=== PATIENT | male | born 1960 | race American Indian/Alaskan Native ===

== ENCOUNTER 2016-06-04 17:05 | Emergency (ER) | payer OTHER ==
[2016-06-04] MEDS ORDERED: PROTONIX IV ONE (19:21)
[2016-06-04] MEDS ORDERED: NACL 0.9% 1000 ML 1,000 ML IV ONE (19:21)
[2016-06-04] MEDS ORDERED: TORADOL IV ONE (19:21)
[2016-06-04] MEDS ORDERED: REGLAN IV ONE (19:21)
[2016-06-04] MEDS ORDERED: ZOFRAN IV ONE (19:21)
[2016-06-04] MEDS ORDERED: DILAUDID IV ONE (19:21)
[2016-06-04 20:22] LABS: Basophils % (Auto) 0.6 % (0.0-1.8); Hemoglobin 11.7 gm/dl (11.8-15.2); Mean Corpuscular HGB Conc 34 % (32-34); Mean Corpuscular Hemoglobin 28 pg (28-32); Mean Corpuscular Volume 83 fl (84-94); Platelet Count 346 K/mm3 (140-440); Red Blood Count 4.24 M/mm3 (3.65-5.03); Red Cell Distribution Width 15.2 % (13.2-15.2); White Blood Count 10.1 K/mm3 (4.5-11.0)
[2016-06-04] MEDS ORDERED: NORMODYNE IV ONE (20:26)
--- NOTE | 2016-06-04 20:26 | Emergency Department Report ---
ED Abdominal Pain HPI - General Chief Complaint: Abdominal Pain Stated Complaint: SEVERE ABD PAIN/DIABETIC/LOW SUGAR Time Seen by Provider: 06/04/16 19:10 Source: patient Mode of arrival: Ambulatory Limitations: No Limitations - History of Present Illness MD Complaint: abdominal pain Onset/Timin -: Gradual, days(s) Location: diffuse Radiation: none Migration to: no migration Severity: moderate Quality: cramping, aching Consistency: intermittent Improves With: nothing Worsens With: nothing Associated Symptoms: nausea, vomiting. denies: diarrhea, fever, chills, constipation, dysuria, hematemesis, melena, hematuria, anorexia - Related Data Home Medications Medication Instructions Recorded Confirmed Last Taken Lisinopril [Zestril TAB] 40 mg PO QDAY 06/04/16 06/04/16 06/04/16 NIFEdipine [Nifedipine ER] 60 mg PO DAILY 06/04/16 06/04/16 06/04/16 Allergies Allergy/AdvReac Type Severity Reaction Status Date / Time No Known Allergies Allergy Unverified 06/04/16 18:43 ED Review of Systems ROS: Stated complaint: SEVERE ABD PAIN/DIABETIC/LOW SUGAR Other details as noted in HPI Comment: All other systems reviewed and negative Gastrointestinal: abdominal pain ED Past Medical Hx - Medications Home Medications: Home Medications Medication Instructions Recorded Confirmed Last Taken Type Lisinopril [Zestril TAB] 40 mg PO QDAY 06/04/16 06/04/16 06/04/16 History NIFEdipine [Nifedipine ER] 60 mg PO DAILY 06/04/16 06/04/16 06/04/16 History ED Physical Exam - General Limitations: No Limitations General appearance: alert, in no apparent distress - Head Head exam: Present: atraumatic, normocephalic - Eye Eye exam: Present: normal appearance - ENT ENT exam: Present: mucous membranes moist - Neck Neck exam: Present: normal inspection - Respiratory Respiratory exam: Present: normal lung sounds bilaterally. Absent: respiratory distress - Cardiovascular Cardiovascular Exam: Present: regular rate, normal rhythm. Absent: systolic murmur, diastolic murmur, rubs, gallop - GI/Abdominal GI/Abdominal exam: Present: soft, tenderness (diffuse tenderness), normal bowel sounds. Absent: distended, guarding, rebound, rigid - Rectal Rectal exam: Present: deferred - Extremities Exam Extremities exam: Present: normal inspection - Back Exam Back exam: Present: normal inspection - Neurological Exam Neurological exam: Present: alert, oriented X3 - Psychiatric Psychiatric exam: Present: normal affect, normal mood - Skin Skin exam: Present: warm, dry, intact, normal color. Absent: rash ED Course Vital Signs 06/04/16 06/04/16 06/04/16 18:40 20:40 20:41 Temperature 98.6 F Pulse Rate 94 H Respiratory 18 20 20 Rate Blood Pressure 220/130 O2 Sat by Pulse 100 Oximetry 06/04/16 06/04/16 21:06 21:28 Temperature Pulse Rate 96 H Respiratory 20 Rate Blood Pressure 213/133 O2 Sat by Pulse 98 Oximetry ED Medical Decision Making - Lab Data Result diagrams: 06/04/16 20:07 06/04/16 20:07 - Medical Decision Making Patient doing well, labs negative and kub with non specific gas pattern , reassess on exam shows no tenderness and he is able to tolerate food here. Will dc and follow up. Critical care attestation.: If time is entered above; I have spent that time in minutes in the direct care of this critically ill patient, excluding procedure time. ED Disposition Clinical Impression: Abdominal pain Disposition: DISCHARGED TO HOME OR SELFCARE Is pt being admited?: No Does the pt Need Aspirin: No Condition: Good Instructions: Abdominal Pain (ED) Referrals: PRIMARY CARE, [Primary Care Provider] - 3-5 Days Time of Disposition: 22:21
[2016-06-04 21:09] LABS: Albumin 2.7 g/dL (3.9-5); Albumin/Globulin Ratio 0.6 %; BUN/Creatinine Ratio 8.21; Bilirubin,Total 0.2 mg/dL (0.1-1.2); Calcium 7.6 mg/dL (8.4-10.2); Chloride 103.4 mmol/L (98-107); Potassium 3.6 mmol/L (3.6-5.0); Total Protein 7.3 g/dL (6.3-8.2)
[2016-06-04 21:35] LABS: Bacteria,Urine 1+ /HPF (Negative); Bilirubin,Urine NEG (Negative); Blood,Urine NEG (Negative); Ketones,Urine TR mg/dL (Negative); Leukocyte Esterase,Urine NEG (Negative); Mucus,Urine FEW /HPF; Nitrite,Urine NEG (Negative); Protein,Urine >500 mg/dL (Negative); Urobilinogen,Urine < 2.0 mg/dL (<2.0)
[2016-06-04 23:02] VITALS: BP 176/98
--- NOTE | 2016-06-05 09:43 | XRay Report ---
ABDOMEN TWO VIEWS: 06/04/16 19:21:00 CLINICAL: Abdominal pain, vomiting and diarrhea. History of a hernia repair in 2016. COMPARISON:None. FINDINGS: Supine upright views demonstrate a normal bowel gas pattern. Stool in the rectum. No distended bowel and no air-fluid levels. No pneumoperitoneum. No mass or suspicious calcifications. Surgical clips in the right upper quadrant. Degenerative change in the spine and hips. IMPRESSION: Negative abdomen. Status post cholecystectomy.
== END 2016-06-04 23:11 | disposition home or self-care (01) ==
LOC: ED 17:05
DX: R10.9 Unspecified abdominal pain (principal)
CPT/HCPCS: 36415; 74020; 80053; 81001; 83690; 85025; 96361; 96374; 96375; 99284; C9113; J1170; J1885; J2405; J2765; J7030

== ENCOUNTER 2018-06-07 07:45 | Day surgery (SDC) | payer BC, OTHER ==
--- NOTE | 2018-06-07 09:07 | Short Stay Summary ---
Short Stay Documentation Date of service: 06/07/18 Narrative H&P: 58 year old male with ESRD and PVD with left lower extremity nonhealing ulceration on HBOT and right AVF malfunction with poor clearance. 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) - Allergies and Medications Current Medications: Allergies No Known Allergies Allergy (Unverified 06/04/16 18:43) Home Medications Medication Instructions Recorded Confirmed Last Taken Type Carvedilol [Coreg] 3.125 mg PO BID 06/07/18 06/07/18 06/06/18 History 3.125mg Ergocalciferol [Vitamin D2] 1 cap PO 1XW 06/07/18 06/07/18 06/05/18 History 1 Gabapentin [Neurontin] 100 mg PO TID 06/07/18 06/07/18 06/06/18 History 100mg Insulin Aspart [NovoLOG Flexpen] 5 units SC TID 06/07/18 06/07/18 06/06/18 History 5 units - Physical exam General appearance: no acute distress Lungs: Normal air movement Heart: Regular rate Gastrointestinal: normal Extremities: normal temperature, normal color, abnormal (right brachiobasilic AVF with good thrill, poor clearance per clinic ; left foot ulceration) - Brief post op/procedure progress note Date of procedure: 06/07/18 Pre-op diagnosis: AVF malfunction Post-op diagnosis: same Procedure: Fistulogram with angioplasty Anesthesia: local Findings: fistulogram with angioplasty Surgeon: HUNTER GAVIN Estimated blood loss: minimal Condition: stable - Hospital course Hospital course: ready for discharge, done with local - Disposition Condition at discharge: Good Disposition: DC-01 TO HOME OR SELFCARE - Discharge Diagnoses (1) Malfunction of arteriovenous dialysis fistula Status: Acute (2) ESRD (end stage renal disease) Status: Acute Short Stay Discharge Plan Activity: advance as tolerated Weight Bearing Status: Weight Bear as Tolerated Diet: renal Wound: keep clean and dry Additional Instructions: Followup this tuesday. Follow up with: ABHIJEET KIM MD [Primary Care Provider] - 7 Days Forms: AVG Arteriogram D/CInstruction
[2018-06-07] MEDS ORDERED: HEPARIN/NS 5000 UNIT/500ML(CATH LAB) 1,000 ML IR ONE (11:02)
[2018-06-07] MEDS: XYLOCAINE 2% INFILTRATI ONE ×2 (11:18→11:32)
[2018-06-07 12:45] VITALS: BP 161/89
--- NOTE | 2018-06-07 13:46 | Operative Report ---
Operative Report Operative Report: EXAM: 1. Ultrasound guided access of the basilic vein towards the anastomosis 2. First order selection of the brachial artery with angiography of the right upper extremity 3. Fistulogram 4. Angioplasty of the arterial anastomosis with a 6 mm x 40 mm angioplasty balloon 5. Angioplasty of the basilic vein at its peripheral and midportion with an 8 mm x 60 mm angioplasty balloon 6. Ultrasound-guided access of the basilic vein towards the venous outflow 7. Angioplasty of the peripheral subclavian vein/central axillary vein with a 12 mm x 60 mm angioplasty balloon DATE: 06/07/18 PERFUME COMPOUNDER: HUNTER GAVIN MD INDICATION: AV fistula malfunction with poor clearances MEDICATIONS: Please see nursing report for full details. DEVICES: 6 mm x 40 mm angioplasty balloon 8 mm x 60 mm angioplasty balloon 12 mm x 60 mm angioplasty balloon PROCEDURE: The risks, benefits, and alternatives of the procedure were discussed and written informed consent was obtained. The patient was transported in stable condition to the angiography suite. The patient's right arm AV brachial basilic AV fistula was assessed by ultrasound and was patent. The patient was prepped and draped in a sterile fashion. Under ultrasound guidance, the right arm AV basilic vein was accessed with a 21- gauge micropuncture needle. The area was anesthetized prior to access. 0.018 inch wire was advanced through the micropuncture needle into the fistula and then the needle was exchanged for a 5 Cypriot transitional dilator. The inner dilator and wire were removed and a 0.035 inch wire was advanced through the anastomosis and into the brachial artery in a retrograde manner. The transitional dilator was exchanged for a 7 Cypriot short sheath. Angled catheter was advanced over the wire and used a selective brachial artery and a retrograde fashion digital subtraction angiography was performed demonstrating patency of the brachial artery. There is patency of the brachial artery proximal and distal to the anastomosis with patency of the proximal ulnar, interosseous, and radial artery but these were small in size. The anas tomosis was 70% narrowed and there was intermittent aneurysmal degeneration and 50-70% narrowing in the peripheral limit portions of the basilic vein. The central portion of the basilic vein was patent. The axillary vein was patent. At the peripheral portion of the subclavian vein/central portion of the axillary vein, there was a 90% narrowing. The rest of the central veins were patent. 6 mm angioplasty balloon is used to perform angioplasty at the anastomosis. Subsequently, 8 mm x 60 mm angioplasty balloon was used to perform angioplasty of the rest of the basilic vein. Digital subtraction angiography was performed demonstrating 20% residual narrowing of the anastomosis with 10% residual narrowing of the rest of the basilic vein with aneurysmal degeneration still noted. Afterwards, under ultrasound guidance, the right arm AV basilic vein was accessed with a 21-gauge micropuncture needle. The area was anesthetized prior to access. 0.018 inch wire was advanced through the micropuncture needle into the fistula and then the needle was exchanged for a 5 Cypriot transitional dilator. The inner dilator and wire were removed and a 0.035 inch wire was advanced through the venous outflow. The transitional dilator was exchanged for a 7 Cypriot short sheath. 12 mm angioplasty balloon was then used to perform angioplasty at the central portion of the axillary vein/peripheral portion of the subclavian vein. Digital subtraction angiography was performed demonstrating 10% residual narrowing. At this point, all wires, catheters, and sheaths were removed. Each site was closed with 3-0 Vicryl suture. Hemostasis was achieved with slight manual compression. The patient was transported from the angiography suite to the recovery area in stable condition. IMPRESSION: 1. Angioplasty of the peripheral dialysis access as described above. 2. Angioplasty of the peripheral portion of the subclavian vein as described above.
== END 2018-06-07 13:00 | disposition home or self-care (01) ==
LOC: CATHLABREC 07:45
PROVIDERS: ATTEND Radiology Diagnostic Radiology
DX: T82.898A Other specified complication of vascular prosthetic devices, implants and grafts, initial encounter (principal); T82.590A Other mechanical complication of surgically created arteriovenous fistula, initial encounter; I12.0 Hypertensive chronic kidney disease with stage 5 chronic kidney disease or end stage renal disease; N18.6 End stage renal disease; I73.9 Peripheral vascular disease, unspecified; Z99.2 Dependence on renal dialysis; Z98.890 Other specified postprocedural states; Z79.899 Other long term (current) drug therapy; Z79.4 Long term (current) use of insulin; Y83.8 Other surgical procedures as the cause of abnormal reaction of the patient, or of later complication, without mention of misadventure at the time of the procedure; Y92.89 Other specified places as the place of occurrence of the external cause
CPT/HCPCS: 36415; 36902; 76937; 84132; C1725; C1751; C1769; C1894; J1644; Q9967

== ENCOUNTER 2018-06-15 06:20 | Day surgery (SDC) | payer BC ==
[2018-06-15] MEDS ORDERED: NACL 0.9% 500 ML 500 ML IV SCH (07:00)
[2018-06-15 07:12] LABS: Basophils % (Auto) 0.5 % (0.0-1.8); Eosinophils # (Auto) 0.1 K/mm3 (0.0-0.4); Eosinophils % (Auto) 1.8 % (0.0-4.3); Hematocrit 41.7 % (35.5-45.6); Hemoglobin 13.6 gm/dl (11.8-15.2); Lymphocytes # (Auto) 2.7 K/mm3 (1.2-5.4); Lymphocytes % (Auto) 36.1 % (13.4-35.0); Mean Corpuscular HGB Conc 33 % (32-34); Mean Corpuscular Volume 88 fl (84-94); Monocytes # (Auto) 0.8 K/mm3 (0.0-0.8); Monocytes % (Auto) 10.9 % (0.0-7.3); Platelet Count 202 K/mm3 (140-440); Red Blood Count 4.76 M/mm3 (3.65-5.03); Red Cell Distribution Width 17.1 % (13.2-15.2)
[2018-06-15 07:19] LABS: INR 0.97 (0.87-1.13)
[2018-06-15 07:20] LABS: Partial Thromboplastin Time 31.2 Sec. (24.2-36.6)
[2018-06-15 07:27] LABS: Calcium 8.5 mg/dL (8.4-10.2)
[2018-06-15] MEDS ORDERED: HEPARIN 10,000 UNITS/10 ML ONE (08:17)
[2018-06-15] MEDS ORDERED: XYLOCAINE 2% INFILTRATI ONE (08:17)
[2018-06-15] MEDS ORDERED: HEPARIN/NS 5000 UNIT/500ML(CATH LAB) 1,000 ML IR ONE (08:17)
[2018-06-15] MEDS ORDERED: ANCEF/STERILE WATER 2 GM/20 ML 2 GM/20 ML SYRINGE IV ONE (08:18)
[2018-06-15] MEDS: SUBLIMAZE ONE ×2 (08:43→08:46)
[2018-06-15] MEDS: VERSED ONE ×2 (08:43→08:46)
[2018-06-15] MEDS ORDERED: VERSED ONE (09:37)
[2018-06-15] MEDS ORDERED: SUBLIMAZE ONE (09:37)
[2018-06-15] MEDS ORDERED: NITROGLYCERIN SYRINGE 3 ML ONE (09:41)
[2018-06-15] MEDS ORDERED: PLAVIX ONE (10:06)
[2018-06-15] MEDS ORDERED: BABY ASPIRIN ONE (10:06)
[2018-06-15] MEDS ORDERED: ALUM-MAG HYDROX-SIMETH 200-200-20MG/5ML ONE (10:11)
--- NOTE | 2018-06-15 10:12 | Short Stay Summary ---
Short Stay Documentation Date of service: 06/15/18 Narrative H&P: 58 year old male with ESRD and nonhealing left charcot joint with PVD with ulceration. - History Principal diagnosis: PVD with ulceration H&P: obtained from office Past Medical History: diabetes, dialysis, PVD Past Surgical History: Other (AV access creation, prior angioplasty by outside physician) Social history: no significant social history - Allergies and Medications Current Medications: Allergies No Known Allergies Allergy (Unverified 06/04/16 18:43) Home Medications Medication Instructions Recorded Confirmed Last Taken Type Carvedilol [Coreg] 3.125 mg PO BID 06/07/18 06/15/18 06/14/18 History Ergocalciferol [Vitamin D2] 1 cap PO 1XW 06/07/18 06/15/18 06/12/18 History Gabapentin [Neurontin] 100 mg PO TID 06/07/18 06/15/18 06/14/18 History Insulin Aspart [NovoLOG Flexpen] 5 units SC TIDAC 06/07/18 06/15/18 06/14/18 History Active Medications Sodium Chloride (Nacl 0.9% 500 Ml) 500 mls @ 50 mls/hr IV DIRECT FABI - Physical exam General appearance: no acute distress Lungs: Normal air movement Gastrointestinal: normal Extremities: normal temperature, normal color, abnormal (left foot ulcer) - Brief post op/procedure progress note Date of procedure: 06/15/18 Pre-op diagnosis: PVD with ulceration Post-op diagnosis: same Procedure: revascularization of the left lower extremity Anesthesia: local (w/ conscious sedation) Surgeon: HUNTER GAVIN Estimated blood loss: minimal Condition: stable - Hospital course Hospital course: Tolerated procedure well. No issues. Loaded with plavix and aspirin. - Disposition Condition at discharge: Stable Disposition: DC-01 TO HOME OR SELFCARE - Discharge Diagnoses (1) Atherosclerosis of left lower extremity with ulceration Status: Acute Short Stay Discharge Plan Activity: advance as tolerated Weight Bearing Status: Weight Bear as Tolerated Diet: renal Wound: keep clean and dry, other (remove pressure dressing 06/16/18 in AM) Follow up with: HUNTER GAVIN MD [Staff Physician] - 7 Days ABHIJEET KIM MD [Primary Care Provider] - 7 Days Forms: Post Arteriogram Instruct Prescriptions: Aspirin EC [Aspirin Enteric Coated TAB] 81 mg PO QDAY #30 tablet. Clopidogrel [Plavix] 75 mg PO QDAY #30 tablet
--- NOTE | 2018-06-15 10:26 | Operative Report ---
Operative Report Operative Report: EXAM: 1. Ultrasound-guided access of the right common femoral artery. 2. Angiography of the right lower extremity. 3. Selection of the abdominal aorta with angiography. 4. Selection of the left external iliac artery, common femoral artery, superficial femoral artery and popliteal artery, and anterior tibial artery with angiography of the left lower extremity 5. Fluoroscopic guided placement of a 3 mm spider embolic protection device in the left anterior tibial artery, distally. 6. Atherectomy of the left proximal and mid anterior tibial artery with a Hawkone S with angioplasty with a 3 mm biology and 50 mm angioplasty balloon and 3.5 mm x 100 mm angioplasty balloon. 7. Capture of embolic protection device 8. Closure of the right common femoral artery with a 6 Namibian Angio-Seal DATE: 06/15/18 CARPENTER HELPER MAINTENANCE: HUNTER GAVIN MD INDICATION: Critical limb ischemia of the left lower extremity MEDICATIONS: Please see nursing report for full details. DEVICES: Hawkone S 3 mm x 150 mm angioplasty balloon 3.5 mm x 100 mm angioplasty balloon 3 mm spider embolic protection device CONTRAST: Please see quality assurance qa lab analyst report for full details PROCEDURE: Risks, benefits, and alternatives were discussed with the patient; written informed consent was obtained. The right and left common femoral arteries were assessed with ultrasound were patent. Under direct ultrasound guidance, the right common femoral artery was accessed with a 21-gauge micro-puncture needle. 0.018 inch wire was passed into the aorta. Needle was exchanged for a transitional dilator. Wire was exchanged for 0.035 inch wire. Transitional dilator was exchanged for a 5 Namibian sheath. Digital subtraction angiography was performed demonstrating an appropriate puncture, above the bifurcation and below the inferior epigastric artery. The right external iliac artery, common femoral artery, profunda femoral artery and superficial femoral artery were patent. Digital subtraction angiography was performed demonstrating runoff of the right lower extremity with patency of the right popliteal artery and tibioperoneal trunk and patency of the posterior tibial artery and peroneal artery. Anterior tibial artery had multifocal high- grade narrowings. Distribution into the foot was good although the transit from the anterior tibial was quite sluggish. Catheter was used to select the abdominal aorta. Digital subtraction angiography was performed demonstrating mild narrowing of the renal arteries. The abdominal aorta was patent. The bilateral common iliac arteries were patent. The bilateral internal iliac arteries were patent. The bilateral external iliac arteries were patent. The left external iliac artery was selected. The left common femoral artery was selected. The left superficial femoral artery was selected. The left popliteal artery was selected. Left anterior tibial artery was selected. Digital subtraction angiography was performed demonstrating patency of the left superficial femoral artery and popliteal artery with patency of the tibial peroneal trunk and peroneal artery with occlusion of the posterior tibial artery and severe multifocal 90% and 99% narrowing of the left proximal and mid anterior tibial artery with sluggish flow. The distal runoff of the anterior tibial artery was patent. The distal peroneal artery had a large hypertrophic branch of posterior communicating artery which appeared to be continuous with the common plantar arteries. The distribution into the foot was good although the transit from the anterior tibial was sluggish. The patient was heparinized. Sheath was exchanged for 6 Namibian 90 cm Lucile destination positioned in the left popliteal artery. Left anterior tibial artery was selected and digital subtraction angiography was performed confirming position. V 18 wire was passed into the distal anterior tibial artery. 3 mm spider wire was then advanced over the wire and deployed in the left anterior tibial artery. Atherectomy was performed of the left anterior tibial artery with multiple passes with the [employer] S device. Afterwards, 3 mm x 150 mm angioplasty balloon was used to perform angioplasty of the left anterior tibial artery. Subsequently, 3.5 mm x 100 mm angioplasty balloon was used to perform angioplasty of the left proximal to mid anterior tibial artery. Digital subtraction angiography demonstrated less than 10% residual narrowing. There is now prompt flow through the anterior tibial artery. 600 micrograms of nitroglycerin injected. Spider wire was then removed and digital subtraction angiography demonstrated no change in the pedal runoff/distribution. All wires, catheters, and sheaths retracted the right external iliac artery. Sheath was exchanged for 6 [place]ibian Angio-Seal which was deployed achieving immediate hemostasis. Ultrasound was used to confirm positioning of the foot plate which was in appropriate position. Patient tolerated procedure well. No immediate postprocedure complication. FINDINGS: Please see procedure note above. IMPRESSION: 1. Successful left lower extremity anterior tibial artery atherectomy and angioplasty.
[2018-06-15 12:51] VITALS: BP 139/79
== END 2018-06-15 13:05 | disposition home or self-care (01) ==
LOC: CATHLABREC 06:20
PROVIDERS: ATTEND Radiology Diagnostic Radiology
DX: I70.213 Atherosclerosis of native arteries of extremities with intermittent claudication, bilateral legs (principal); I70.249 Atherosclerosis of native arteries of left leg with ulceration of unspecified site; I12.0 Hypertensive chronic kidney disease with stage 5 chronic kidney disease or end stage renal disease; N18.6 End stage renal disease; Z98.890 Other specified postprocedural states; Z99.2 Dependence on renal dialysis; Z79.899 Other long term (current) drug therapy; Z79.82 Long term (current) use of aspirin; Z79.4 Long term (current) use of insulin
CPT/HCPCS: 36415; 37229; 75625; 75716; 80048; 85025; 85610; 85730; 99156; 99157; C1714; C1725; C1760; C1769; C1887; J0690; J1644; J2250; J3010; J7040; Q9967

== ENCOUNTER 2018-08-17 12:58 | Emergency (ER) | payer BC ==
--- NOTE | 2018-08-17 13:21 | Emergency Department Report ---
Blank Doc - Documentation Documentation: 58 y o male was at dialysis today when he started experiencing abd cramping
[2018-08-17 13:52] LABS: Basophils % (Auto) 0.3 % (0.0-1.8); Eosinophils % (Auto) 0.5 % (0.0-4.3); Hematocrit 39.5 % (35.5-45.6); Hemoglobin 13.3 gm/dl (11.8-15.2); Lymphocytes # (Auto) 2.3 K/mm3 (1.2-5.4); Lymphocytes % (Auto) 28.6 % (13.4-35.0); Mean Corpuscular HGB Conc 34 % (32-34); Mean Corpuscular Volume 87 fl (84-94); Monocytes # (Auto) 0.9 K/mm3 (0.0-0.8); Monocytes % (Auto) 10.9 % (0.0-7.3); Platelet Count 360 K/mm3 (140-440); Red Blood Count 4.53 M/mm3 (3.65-5.03); Red Cell Distribution Width 18.6 % (13.2-15.2)
[2018-08-17 14:02] LABS: INR 1.12 (0.87-1.13)
[2018-08-17 14:14] LABS: Albumin 4.5 g/dL (3.9-5); Calcium 8.9 mg/dL (8.4-10.2)
--- NOTE | 2018-08-17 15:17 | Cat Scan Report ---
CT ABDOMEN PELVIS WITHOUT CONTRAST: HISTORY: abdominal pain. COMPARISON: none. TECHNIQUE: Helical CT in 1.25mm intervals without IV contrast. Sagittal and coronal reconstructions. FINDINGS: Lung bases: Normal. Liver: Normal. Biliary system: Normal. Pancreas: Normal. Spleen: Normal. Kidneys/ureters/bladder: Normal. Adrenal glands: Normal. Aorta: Normal. Intestines: No evidence for bowel obstruction or focal inflammation. A surgical suture line is noted in the left abdomen involving mid small bowel loops, correlate with history. There are a few scattered cecal diverticula but no evidence for diverticulitis. Appendix: Normal. Pelvic viscera: Normal. Ascites: None. Adenopathy: None. Musculoskeletal: Mild lumbar spondylosis is noted. There is laxity of the anterior abdominal wall in the umbilical region. There appears to be multiple small ventral wall defects in this area. Approximately 3 or 4 small defects are suspected. Some of the defects containing a short segment of small bowel and some contain fat. There is no evidence for bowel obstruction. IMPRESSION: No acute inflammatory process is identified. Multiple small ventral wall defects containing fat and short segments of small bowel are identified in the umbilical region. No evidence for inflammation in this area. Mild cecal diverticulosis.
[2018-08-17] MEDS ORDERED: MORPHINE IV ONE (16:41)
[2018-08-17] MEDS ORDERED: ZOFRAN IV ONE (16:41)
[2018-08-17] MEDS ORDERED: DILAUDID IV ONE (17:28)
[2018-08-17 18:53] VITALS: BP 166/90
--- NOTE | 2018-08-17 19:11 | Emergency Department Report ---
ED Abdominal Pain HPI - General Chief Complaint: Abdominal Pain Stated Complaint: ABD PAIN Time Seen by Provider: 08/17/18 13:17 Source: patient Mode of arrival: Ambulatory Limitations: No Limitations - History of Present Illness Initial Comments: Mr. Smith is a very pleasant 58-year-old gentleman with history of end-stage renal disease, he receives dialysis Tuesday. History of diabetes mellitus. He has had a history of gastroparesis for the past [address] Weaver GI specialist in [place]. He has left upper quadrant abdominal pain with nausea. Pain has been present for the past 1 1/2 day since yesterday. According to Mr. Smith and his , On previous ED visits pain has resolved with ketamine or Dilaudid. Morphine normally does not provide relief. Pain is typical for gastroparesis. He has cramping. Denies fever. Dr. Hays iron and [employer] work supervisor Dr. Abhijeet Kim PCP in [place] MD Complaint: abdominal pain -: Gradual, days(s) (1) Location: LUQ Radiation: none Severity: mild, severe Severity scale (0 -10): 0 Quality: cramping Consistency: intermittent Worsens With: eating Associated Symptoms: nausea, vomiting - Related Data Home Medications Medication Instructions Recorded Confirmed Last Taken Carvedilol [Coreg] 3.125 mg PO BID 06/07/18 06/15/18 06/14/18 Ergocalciferol [Vitamin D2] 1 cap PO 1XW 06/07/18 06/15/18 06/12/18 Gabapentin [Neurontin] 100 mg PO TID 06/07/18 06/15/18 06/14/18 Insulin Aspart [NovoLOG Flexpen] 5 units SC TIDAC 06/07/18 06/15/18 06/14/18 Previous Rx's Medication Instructions Recorded Last Taken Type Aspirin EC [Aspirin Enteric Coated 81 mg PO QDAY #30 tablet. 06/15/18 Unknown Rx TAB] Clopidogrel [Plavix] 75 mg PO QDAY #30 tablet 06/15/18 Unknown Rx Ondansetron [Zofran Odt] 4 mg PO Q8HR PRN #10 tab.rapdis 08/17/18 Unknown Rx Allergies Allergy/AdvReac Type Severity Reaction Status Date / Time No Known Allergies Allergy Unverified 06/04/16 18:43 ED Review of Systems ROS: Stated complaint: ABD PAIN Other details as noted in HPI Comment: All other systems reviewed and negative Constitutional: denies: fever, malaise Cardiovascular: denies: chest pain Gastrointestinal: abdominal pain, nausea, vomiting ED Past Medical Hx - Past Medical History Previous Medical History?: Yes Hx Hypertension: Yes Hx Diabetes: Yes Hx Renal Disease: Yes Hx HIV: No Additional medical history: gastroporesis - Surgical History Past Surgical History?: Yes Additional Surgical History: hernia repair - Social History Smoking Status: Never Smoker Substance Use Type: None - Medications Home Medications: Home Medications Medication Instructions Recorded Confirmed Last Taken Type Carvedilol [Coreg] 3.125 mg PO BID 06/07/18 06/15/18 06/14/18 History Ergocalciferol [Vitamin D2] 1 cap PO 1XW 06/07/18 06/15/18 06/12/18 History Gabapentin [Neurontin] 100 mg PO TID 06/07/18 06/15/18 06/14/18 History Insulin Aspart [NovoLOG Flexpen] 5 units SC TIDAC 06/07/18 06/15/18 06/14/18 History Aspirin EC [Aspirin Enteric Coated 81 mg PO QDAY #30 tablet.dr 06/15/18 Unknown Rx TAB] Clopidogrel [Plavix] 75 mg PO QDAY #30 tablet 06/15/18 Unknown Rx Ondansetron [Zofran Odt] 4 mg PO Q8HR PRN #10 tab.rapdis 08/17/18 Unknown Rx ED Physical Exam - General Limitations: No Limitations General appearance: alert, in no apparent distress - Head Head exam: Present: atraumatic, normocephalic - Eye Eye exam: Present: normal appearance - ENT ENT exam: Present: mucous membranes moist - Neck Neck exam: Present: normal inspection, full ROM - Respiratory Respiratory exam: Present: normal lung sounds bilaterally. Absent: respiratory distress, wheezes, rales, rhonchi - Cardiovascular Cardiovascular Exam: Present: regular rate, normal rhythm, normal heart sounds. Absent: systolic murmur, diastolic murmur, rubs, gallop - GI/Abdominal GI/Abdominal exam: Present: soft, normal bowel sounds. Absent: distended, tenderness, guarding, rebound - Rectal Rectal exam: Present: deferred - Extremities Exam Extremities exam: Present: normal inspection - Back Exam Back exam: Present: normal inspection - Neurological Exam Neurological exam: Present: alert, oriented X3 - Psychiatric Psychiatric exam: Present: normal affect, normal mood - Skin Skin exam: Present: warm, dry, intact, normal color. Absent: rash ED Course Vital Signs 08/17/18 08/17/18 08/17/18 13:17 16:24 16:31 Temperature 97.8 F 97.9 F Pulse Rate 109 H 103 H Respiratory 109 H 20 Rate Blood Pressure 143/86 176/96 Blood Pressure 176/96 [Left] O2 Sat by Pulse 99 100 99 Oximetry 08/17/18 08/17/18 08/17/18 17:10 17:30 18:00 Temperature Pulse Rate Respiratory 16 Rate Blood Pressure 178/101 178/100 Blood Pressure [Left] O2 Sat by Pulse 92 100 Oximetry 08/17/18 08/17/18 18:02 18:30 Temperature Pulse Rate 92 H Respiratory 18 22 Rate Blood Pressure 166/90 Blood Pressure [Left] O2 Sat by Pulse 97 Oximetry ED Medical Decision Making - Lab Data Result diagrams: 08/17/18 13:31 08/17/18 13:31 Laboratory Results - last 24 hr 08/17/18 08/17/18 08/17/18 13:31 13:31 13:31 WBC 8.0 RBC 4.53 Hgb 13.3 Hct 39.5 MCV 87 MCH 29 MCHC 34 RDW 18.6 H Plt Count 360 Lymph % (Auto) 28.6 Gaines % (Auto) 10.9 H Eos % (Auto) 0.5 Baso % (Auto) 0.3 Lymph # 2.3 Gaines # 0.9 H Eos # 0.0 Baso # 0.0 Seg Neutrophils % 59.7 Seg Neutrophils # 4.8 PT 14.1 INR 1.12 Sodium 137 Potassium 4.1 Chloride 92.5 L Carbon Dioxide 22 Anion Gap 27 BUN 38 H Creatinine 10.3 H Estimated GFR 6 BUN/Creatinine Ratio 4 Glucose 255 H Calcium 8.9 Total Bilirubin 0.60 AST 16 ALT 11 Alkaline Phosphatase 126 Total Protein 9.9 H Albumin 4.5 Albumin/Globulin Ratio 0.8 - Medical Decision Making Mr. Smith presents with recurrent abdominal pain nausea vomiting. Pain is typical for pain related to gastroparesis. No indication of peritonitis or acute infection. CBC potassium was normal limits. He received relief of pain with IV hydromorphone. I prescribed Zofran. I offered hospitalization admission. He politely declined hospitalization. He desired to be discharged home. Critical care attestation.: If time is entered above; I have spent that time in minutes in the direct care of this critically ill patient, excluding procedure time. ED Disposition Clinical Impression: Acute abdominal pain, Diabetes mellitus, Gastroparesis, ESRD (end stage renal disease) Disposition: - TO HOME OR SELFCARE Is pt being admited?: No Does the pt Need Aspirin: No Condition: Stable Instructions: Acute Nausea and Vomiting (ED), Acute Abdominal Pain (ED) Prescriptions: Ondansetron [Zofran Odt] 4 mg PO Q8HR PRN #10 tab.rapdis PRN Reason: Nausea Referrals: ABHIJEET KIM MD [Primary Care Provider] - 3-5 Days
== END 2018-08-17 19:43 | disposition home or self-care (01) ==
LOC: ED 12:58
DX: E11.43 Type 2 diabetes mellitus with diabetic autonomic (poly)neuropathy (principal); K31.84 Gastroparesis; E11.22 Type 2 diabetes mellitus with diabetic chronic kidney disease; I12.0 Hypertensive chronic kidney disease with stage 5 chronic kidney disease or end stage renal disease; N18.6 End stage renal disease; Z99.2 Dependence on renal dialysis; Z79.899 Other long term (current) drug therapy
CPT/HCPCS: 36415; 74176; 80053; 85025; 85610; 96374; 96375; 99284; J1170; J2270; J2405

== ENCOUNTER 2018-08-23 14:35 | Inpatient (IN) | payer BC ==
--- NOTE | 2018-08-23 14:57 | Event Note ---
ED Screening Note Date of service: 08/23/18 Time: 14:55 ED Screening Note: 58 y/o male comes in for abd pain. Hx/o DM, HTN, ESRD hx/ gastroparesis 11/30 pain. This initial assessment/diagnostic orders/clinical plan/treatment(s) is/are subject to change based on patients health status, clinical progression and re- assessment by fellow clinical providers in the ED. Further treatment and workup at subsequent clinical providers discretion. Patient/guardian urged not to elope from the ED as their condition may be serious if not clinically assessed and managed. Initial orders include:
[2018-08-23 15:26] LABS: Basophils # (Auto) 0.1 K/mm3 (0.0-0.1); Basophils % (Auto) 0.7 % (0.0-1.8); Eosinophils % (Auto) 0.3 % (0.0-4.3); Hematocrit 42.1 % (35.5-45.6); Hemoglobin 14.2 gm/dl (11.8-15.2); Lymphocytes % (Auto) 23.6 % (13.4-35.0); Mean Corpuscular HGB Conc 34 % (32-34); Mean Corpuscular Volume 89 fl (84-94); Monocytes # (Auto) 0.8 K/mm3 (0.0-0.8); Platelet Count 295 K/mm3 (140-440); Red Blood Count 4.75 M/mm3 (3.65-5.03)
[2018-08-23 15:34] LABS: Red Cell Distribution Width 21.8 % (13.2-15.2)
[2018-08-23 15:50] LABS: Albumin 4.5 g/dL (3.9-5); Calcium 9.5 mg/dL (8.4-10.2)
[2018-08-23] MEDS ORDERED: ATIVAN IV ONE (17:09)
[2018-08-23] MEDS ORDERED: ZOFRAN IV ONE ×2 (17:09→18:15)
--- NOTE | 2018-08-23 17:09 | Emergency Department Report ---
ED Abdominal Pain HPI - General Chief Complaint: Abdominal Pain Stated Complaint: ABD PAIN/NAUSEA Time Seen by Provider: 08/23/18 16:29 Source: patient Mode of arrival: Ambulatory Limitations: No Limitations - History of Present Illness Initial Comments: Mr. Smith is a very pleasant 58-year-old gentleman with history of end-stage renal disease on dialysis. He also has a history of diabetes mellitus and gastroparesis. He receives dialysis Tuesday. For the last 2-3 years he has had symptoms of abd pain, n/v with diabetic gastroparesis. Followed by Dr. Weaver GI specialist in [place]. He has diffuse abdominal pain. Has had nausea and vomiting. He tolerated his last meal was on Tuesday 2 days ago. On according to Mr. Smith, on previous ED visitshis pain has resolved with ketamine or Dilaudid. Morphine only does not provide any relief. Pain is typical for gastroparesis. He has crampy dull pain. Denies fever. On previous occasion he has been treated at [facility]. He has decided to come to our hospital because he no longer received ketamine or Dilaudid. He currently requests Dilaudid or ketamine in order to control his symptoms. Certified Dietary Manager Dr. Lis Kim PCP in [place] Complaint: abdominal pain -: Gradual, days(s) (2) Location: diffuse Severity: moderate Severity scale (0 -10): 10 Quality: cramping, aching, dull Consistency: constant Improves With: nothing Worsens With: eating Associated Symptoms: nausea, vomiting - Related Data Home Medications Medication Instructions Recorded Confirmed Last Taken Carvedilol [Coreg] 3.125 mg PO BID 06/07/18 06/15/18 06/14/18 Ergocalciferol [Vitamin D2] 1 cap PO 1XW 06/07/18 06/15/18 06/12/18 Gabapentin [Neurontin] 100 mg PO TID 06/07/18 06/15/18 06/14/18 Insulin Aspart [NovoLOG Flexpen] 5 units SC TIDAC 06/07/18 06/15/18 06/14/18 Previous Rx's Medication Instructions Recorded Last Taken Type Aspirin EC [Aspirin Enteric Coated 81 mg PO QDAY #30 tablet. 06/15/18 Unknown Rx TAB] Clopidogrel [Plavix] 75 mg PO QDAY #30 tablet 06/15/18 Unknown Rx Ondansetron [Zofran Odt] 4 mg PO Q8HR PRN #10 tab.rapdis 08/17/18 Unknown Rx Allergies Allergy/AdvReac Type Severity Reaction Status Date / Time No Known Allergies Allergy Verified 08/23/18 15:01 ED Review of Systems ROS: Stated complaint: ABD PAIN/NAUSEA Other details as noted in HPI Comment: All other systems reviewed and negative Constitutional: malaise. denies: fever Gastrointestinal: abdominal pain, nausea, vomiting. denies: diarrhea ED Past Medical Hx - Past Medical History Previous Medical History?: Yes Hx Hypertension: Yes Hx Diabetes: Yes Hx Renal Disease: Yes (ESRD, HD M-W-F) Hx HIV: No Additional medical history: gastroporesis - Surgical History Past Surgical History?: Yes Additional Surgical History: hernia repair. left foot, left ACL - Social History Smoking Status: Never Smoker Substance Use Type: None - Medications Home Medications: Home Medications Medication Instructions Recorded Confirmed Last Taken Type Carvedilol [Coreg] 3.125 mg PO BID 06/07/18 06/15/18 06/14/18 History Ergocalciferol [Vitamin D2] 1 cap PO 1XW 06/07/18 06/15/18 06/12/18 History Gabapentin [Neurontin] 100 mg PO TID 06/07/18 06/15/18 06/14/18 History Insulin Aspart [NovoLOG Flexpen] 5 units SC TIDAC 06/07/18 06/15/18 06/14/18 History Aspirin EC [Aspirin Enteric Coated 81 mg PO QDAY #30 tablet. 06/15/18 Unknown Rx TAB] Clopidogrel [Plavix] 75 mg PO QDAY #30 tablet 06/15/18 Unknown Rx Ondansetron [Zofran Odt] 4 mg PO Q8HR PRN #10 tab.rapdis 08/17/18 Unknown Rx ED Physical Exam - General Limitations: No Limitations General appearance: alert, in no apparent distress, other (holding half full emesis bag) - Head Head exam: Present: atraumatic, normocephalic - Eye Eye exam: Present: normal appearance - ENT ENT exam: Present: mucous membranes moist - Neck Neck exam: Present: normal inspection, full ROM - Respiratory Respiratory exam: Present: normal lung sounds bilaterally. Absent: respiratory distress, wheezes, rales, rhonchi - Cardiovascular Cardiovascular Exam: Present: normal rhythm, tachycardia, normal heart sounds. Absent: rubs, gallop - GI/Abdominal GI/Abdominal exam: Present: soft, normal bowel sounds. Absent: distended, tenderness, guarding, rebound - Rectal Rectal exam: Present: deferred - Extremities Exam Extremities exam: Present: normal inspection - Back Exam Back exam: Present: normal inspection - Neurological Exam Neurological exam: Present: alert, oriented X3 - Psychiatric Psychiatric exam: Present: normal affect, normal mood - Skin Skin exam: Present: warm, dry, intact, normal color. Absent: rash ED Course Vital Signs 08/23/18 14:54 Temperature 98.2 F Pulse Rate 115 H Respiratory 20 Rate Blood Pressure 109/74 [Right] O2 Sat by Pulse 97 Oximetry ED Medical Decision Making - Lab Data Result diagrams: 08/23/18 15:10 08/23/18 15:10 Laboratory Results - last 24 hr 08/23/18 08/23/18 08/23/18 15:05 15:10 15:10 WBC 8.3 RBC 4.75 Hgb 14.2 Hct 42.1 MCV 89 MCH 30 MCHC 34 RDW 21.8 H Plt Count 295 Lymph % (Auto) 23.6 Lamb % (Auto) 10.0 H Eos % (Auto) 0.3 Baso % (Auto) 0.7 Lymph # 2.0 Lamb # 0.8 Eos # 0.0 Baso # 0.1 Seg Neutrophils % 65.4 Seg Neutrophils # 5.4 Sodium 133 L Potassium 3.9 Chloride 91.6 L Carbon Dioxide 20 L Anion Gap 25 BUN 28 H Creatinine 8.5 H Estimated GFR 8 BUN/Creatinine Ratio 3 Glucose 217 H POC Glucose 184 H Calcium 9.5 Total Bilirubin 1.00 AST 14 ALT 8 Alkaline Phosphatase 123 Total Protein 10.1 H Albumin 4.5 Albumin/Globulin Ratio 0.8 Lipase 64 H - Medical Decision Making Mr. Smith has hx of diabetic gastroparesis. He presents with abdominal pain and intractable nausea/vomiting. He appears ill and uncomfortable. He has persis tent tachycardia. Will benefit from NPO status and IV treatment. Admitted to hospitalist service in fair condition. Labs notable for normal WBC, increased anion gap, decreased bicarbonate CT A/P obtained last week negative for acute process Critical care attestation.: If time is entered above; I have spent that time in minutes in the direct care of this critically ill patient, excluding procedure time. ED Disposition Clinical Impression: Gastroparesis, Diabetes mellitus, Acute abdominal pain, ESRD (end stage renal disease), Intractable nausea and vomiting Disposition: OP ADMIT IP TO THIS HOSP Is pt being admited?: Yes Does the pt Need Aspirin: No Condition: Stable Referrals: ABHIJEET KIM MD [Primary Care Provider] - 3-5 Days
[2018-08-23] MEDS ORDERED: PROTONIX IV ONE (17:10)
[2018-08-23] MEDS ORDERED: NACL 0.9% 500 ML 500 ML IV ONE (17:10)
[2018-08-23] MEDS ORDERED: ZOFRAN ONE (18:04)
[2018-08-23] MEDS ORDERED: BENADRYL IV ONE (18:52)
[2018-08-23] MEDS ORDERED: REGLAN IV ONE (18:52)
[2018-08-23] MEDS ORDERED: BENADRYL ONE (19:09)
[2018-08-23] MEDS ORDERED: REGLAN ONE (19:09)
[2018-08-23] MEDS ORDERED: TYLENOL PO PRN (22:00)
[2018-08-23] MEDS ORDERED: REGLAN IV PRN (22:00)
[2018-08-23] MEDS ORDERED: SODIUM CHLORIDE FLUSH SYRINGE 10 ML IV PRN (22:00)
[2018-08-23] MEDS ORDERED: CATAPRES-TTS PATCH TD SCH (22:15)
[2018-08-23] MEDS: NACL 0.9% 1000 ML 1,000 ML IV SCH (23:08)
[2018-08-23] MEDS: HumaLOG SUB-Q SCH (23:09)
[2018-08-23] MEDS: SODIUM CHLORIDE FLUSH SYRINGE 10 ML IV SCH (23:31)
[2018-08-24] MEDS: ZOFRAN IV PRN (00:38)
--- NOTE | 2018-08-24 01:02 | History and Physical Report ---
History of Present Illness Date of examination: 08/23/18 Date of admission: 08/23/18 17:20 Chief complaint: Vomiting and abd pain since am. History of present illness: 58-year-old gentleman with history of end-stage renal disease on dialysis, diabetes mellitus ,HTN,CAD,PN and gastroparesis comes in for abd pain, n/v \since AM.Apparently vomited about 20 times since am. Followed by Dr. Knight GI specialist in [place]. He has diffuse abdominal pain. Has had nausea and vomiting. He tolerated his last meal was on Tuesday 2 days ago. According to Mr. Smith, on previous ED visits his pain has resolved with ketamine or Dilaudid. Morphine only does not provide any relief. Pain is typical for gastroparesis. He has crampy dull pain. Denies fever.Patient came with similar symtoms one week ago--was treated in ED and was discharged from ED.Abdominal pain is 6/110.Sharp in consistency.no exacerbating or relieving factors. Past Medical History Previous Medical History?: Yes Hypertension: Yes Diabetes: Yes Renal Disease: Yes (ESRD, HD M-W-F) Additional medical history: gastroporesis Surgical History Past Surgical History?: Yes Additional Surgical History: hernia repair. left foot, left ACL Social History Smoking Status: Never Smoker Substance Use Type: None Family History Htn Medications Home Medications: Home Medications Medication Instructions Recorded Confirmed Last Taken Type Carvedilol [Coreg] 3.125 mg PO BID 06/07/18 06/15/18 06/14/18 History Ergocalciferol [Vitamin D2] 1 cap PO 1XW 06/07/18 06/15/18 06/12/18 History Gabapentin [Neurontin] 100 mg PO TID 06/07/18 06/15/18 06/14/18 History Insulin Aspart [NovoLOG Flexpen] 5 units SC TIDAC 06/07/18 06/15/18 06/14/18 History Aspirin EC [Aspirin Enteric Coated 81 mg PO QDAY #30 tablet. 06/15/18 Unknown Rx TAB] Clopidogrel [Plavix] 75 mg PO QDAY #30 tablet 06/15/18 Unknown Rx Ondansetron [Zofran Odt] 4 mg PO Q8HR PRN #10 tab.rapdis 08/17/18 Unknown Rx Review of Systems ROS: Stated complaint: ABD PAIN/NAUSEA Other details as noted in HPI Comment: All other systems reviewed and negative Constitutional: malaise. denies: fever Gastrointestinal: abdominal pain, nausea, vomiting. denies: diarrhea Medications and Allergies Allergies Allergy/AdvReac Type Severity Reaction Status Date / Time No Known Allergies Allergy Verified 08/23/18 15:01 Home Medications Medication Instructions Recorded Confirmed Last Taken Type Carvedilol [Coreg] 3.125 mg PO BID 06/07/18 06/15/18 06/14/18 History Ergocalciferol [Vitamin D2] 1 cap PO 1XW 06/07/18 06/15/18 06/12/18 History Gabapentin [Neurontin] 100 mg PO TID 06/07/18 06/15/18 06/14/18 History Insulin Aspart [NovoLOG Flexpen] 5 units SC TIDAC 06/07/18 06/15/18 06/14/18 History Aspirin EC [Aspirin Enteric Coated 81 mg PO QDAY #30 tablet. 06/15/18 Unknown Rx TAB] Clopidogrel [Plavix] 75 mg PO QDAY #30 tablet 06/15/18 Unknown Rx Ondansetron [Zofran Odt] 4 mg PO Q8HR PRN #10 tab.rapdis 08/17/18 Unknown Rx Active Meds: Active Medications Acetaminophen (Tylenol) 650 mg PO Q4H PRN PRN Reason: Pain MILD(1-3)/Fever >100.5/WILBURN Clonidine HCl (Catapres-Tts Patch) 0.2 mg TD We FABI Last Admin: 08/23/18 23:07 Dose: Not Given Documented by: Hydromorphone HCl (Dilaudid) 0.5 mg IV Q3H PRN PRN Reason: Pain , Severe (7-10) Sodium Chloride (Nacl 0.9% 1000 Ml) 1,000 mls @ 42 mls/hr IV DIRECT FABI Last Admin: 08/23/18 23:08 Dose: 42 mls/hr Documented by: Insulin Human Lispro (Humalog) 0 unit SUB-Q Q6HR FABI; Protocol Last Admin: 08/23/18 23:09 Dose: 4 unit Documented by: Metoclopramide HCl (Reglan) 5 mg IV Q6H PRN PRN Reason: Nausea And Vomiting Ondansetron HCl (Zofran) 4 mg IV Q3H PRN PRN Reason: Nausea And Vomiting Sodium Chloride (Sodium Chloride Flush Syringe 10 Ml) 10 ml IV BID FABI Last Admin: 08/23/18 23:31 Dose: 10 ml Documented by: Sodium Chloride (Sodium Chloride Flush Syringe 10 Ml) 10 ml IV PRN PRN PRN Reason: LINE FLUSH Exam - Constitutional Vitals: Temp Pulse Resp BP Pulse Ox 98.7 F 101 H 20 93/54 97 08/23/18 23:16 08/23/18 23:16 08/23/18 23:16 08/23/18 23:16 08/23/18 23:16 General appearance: Present: mild distress, well-nourished - EENT Eyes: Present: PERRL ENT: hearing intact, clear oral mucosa - Neck Neck: Present: supple, normal ROM - Respiratory Respiratory effort: normal Respiratory: bilateral: CTA - Cardiovascular Heart rate: 78 Rhythm: regular Heart Sounds: Present: S1 & S2. Absent: rub, click - Extremities Extremities: no ischemia, pulses intact, pulses symmetrical, No edema Peripheral Pulses: within normal limits - Abdominal General gastrointestinal: Present: soft, non-tender, non-distended, normal bowel sounds Male genitourinary: Present: normal - Rectal Rectal Exam: deferred - Integumentary Integumentary: Present: clear, warm, dry - Musculoskeletal Musculoskeletal: gait normal, strength equal bilaterally - Psychiatric Psychiatric: appropriate mood/affect, intact judgment & insight - Neurologic Neurologic: CNII-XII intact, moves all extremities - Allied Health Allied health notes reviewed: nursing, case management Results - Labs CBC & Chem 7: 08/23/18 15:10 08/23/18 15:10 Labs: Laboratory Last Values WBC 8.3 K/mm3 (4.5-11.0) 08/23/18 15:10 RBC 4.75 M/mm3 (3.65-5.03) 08/23/18 15:10 Hgb 14.2 gm/dl (11.8-15.2) 08/23/18 15:10 Hct 42.1 % (35.5-45.6) 08/23/18 15:10 MCV 89 fl (84-94) 08/23/18 15:10 MCH 30 pg (28-32) 08/23/18 15:10 MCHC 34 % (32-34) 08/23/18 15:10 RDW 21.8 % (13.2-15.2) H 08/23/18 15:10 Plt Count 295 K/mm3 (140-440) 08/23/18 15:10 Lymph % (Auto) 23.6 % (13.4-35.0) 08/23/18 15:10 Mcleod % (Auto) 10.0 % (0.0-7.3) H 08/23/18 15:10 Eos % (Auto) 0.3 % (0.0-4.3) 08/23/18 15:10 Baso % (Auto) 0.7 % (0.0-1.8) 08/23/18 15:10 Lymph # 2.0 K/mm3 (1.2-5.4) 08/23/18 15:10 Mcleod # 0.8 K/mm3 (0.0-0.8) 08/23/18 15:10 Eos # 0.0 K/mm3 (0.0-0.4) 08/23/18 15:10 Baso # 0.1 K/mm3 (0.0-0.1) 08/23/18 15:10 Seg Neutrophils % 65.4 % (40.0-70.0) 08/23/18 15:10 Seg Neutrophils # 5.4 K/mm3 (1.8-7.7) 08/23/18 15:10 Sodium 133 mmol/L (137-145) L 08/23/18 15:10 Potassium 3.9 mmol/L (3.6-5.0) 08/23/18 15:10 Chloride 91.6 mmol/L (98-107) L 08/23/18 15:10 Carbon Dioxide 20 mmol/L (22-30) L 08/23/18 15:10 25 mmol/L 08/23/18 15:10 BUN 28 mg/dL (9-20) H 08/23/18 15:10 8.5 mg/dL (0.8-1.5) H 08/23/18 15:10 Estimated GFR 8 ml/min 08/23/18 15:10 3 % 08/23/18 15:10 Glucose 217 mg/dL (75-100) H 08/23/18 15:10 POC Glucose 238 (70-105) H 08/23/18 20:19 8.0 % (4-6) H 08/23/18 15:10 Calcium 9.5 mg/dL (8.4-10.2) 08/23/18 15:10 1.00 mg/dL (0.1-1.2) 08/23/18 15:10 AST 14 units/L (5-40) 08/23/18 15:10 ALT 8 units/L (7-56) 08/23/18 15:10 123 units/L (35-129) 08/23/18 15:10 10.1 g/dL (6.3-8.2) H 08/23/18 15:10 4.5 g/dL (3.9-5) 08/23/18 15:10 0.8 % 08/23/18 15:10 64 units/L (13-60) H 08/23/18 15:10 Assessment and Plan Advance Directives: Yes (full code) VTE prophylaxis?: Chemical Plan of care discussed with patient/family: Yes - Patient Problems (1) Intractable nausea and vomiting Current Visit: Yes Status: Acute Plan to address problem: IV Zofran and IV Reglan IVfluids at 42 ml/hr bcoz of ESRD IV Protonix (2) Gastroparesis Current Visit: Yes Status: Acute Plan to address problem: NM emptying study not ordered Symtomatic treatment. Clear Liquids (3) Acute abdominal pain Current Visit: Yes Status: Acute Plan to address problem: Sec to Gastroparesis IV Dilaudid 1 mg q3 h prn. (4) IDDM (insulin dependent diabetes mellitus) Current Visit: Yes Status: Chronic Plan to address problem: Coverage for now (5) ESRD (end stage renal disease) Current Visit: Yes Status: Chronic Plan to address problem: Cont HD (6) HTN (hypertension) Current Visit: Yes Status: Chronic Qualifiers: Hypertension type: essential hypertension Qualified Code(s): I10 - Essential (primary) hypertension Plan to address problem: Catapres patch initiated Oral anti hpertensives to be resumed when patient able to tolerate PO (7) Vitamin D deficiency Current Visit: Yes Status: Chronic Plan to address problem: Cont Vit D (8) CAD (coronary artery disease) Current Visit: Yes Status: Chronic Qualifiers: Coronary Disease-Associated Artery/Lesion type: [place] artery [place] vs. transplanted heart: [place] heart Associated angina: without angina Qualified Code(s): I25.10 - Atherosclerotic heart disease of [place] coronary artery without angina pectoris Plan to address problem: Cont Plavix (9) DVT prophylaxis Current Visit: Yes Status: Acute Plan to address problem: On Heparin and GI prophylaxis
[2018-08-24] MEDS: PROTONIX IV SCH ×3 (03:16→21:54)
[2018-08-24] MEDS: HumaLOG SUB-Q SCH ×3 (05:54→17:59)
[2018-08-24 06:36] LABS: Basophils % (Auto) 0.4 % (0.0-1.8); Eosinophils % (Auto) 0.2 % (0.0-4.3); Hematocrit 42.1 % (35.5-45.6); Hemoglobin 14.2 gm/dl (11.8-15.2); Lymphocytes % (Auto) 20.4 % (13.4-35.0); Mean Corpuscular HGB Conc 34 % (32-34); Mean Corpuscular Volume 89 fl (84-94); Monocytes # (Auto) 1.3 K/mm3 (0.0-0.8); Monocytes % (Auto) 13.1 % (0.0-7.3); Platelet Count 280 K/mm3 (140-440); Red Blood Count 4.73 M/mm3 (3.65-5.03)
[2018-08-24 06:42] LABS: Red Cell Distribution Width 21.9 % (13.2-15.2)
[2018-08-24 07:06] LABS: Albumin 4.3 g/dL (3.9-5); Calcium 8.8 mg/dL (8.4-10.2)
--- NOTE | 2018-08-24 08:06 | Consultation ---
History of Present Illness - Reason for Consult Consult date: 08/24/18 end stage renal disease - History of Present Illness Very pleasant 58-year-old -[place] male, with a past medical history significant for end-stage renal disease in the setting of diabetes, hypertension, well known to our outpatient unit, who currently dialyzes at the [facility], presented to the emergency department secondary to symptoms of acute abdominal pain, nausea and vomiting. He has a significant history of gastroparesis in the setting of his diabetes. He has had recurrent issues with the gastroparesis that has required multiple hospitalizations in the past. He has seen gastroenterology as an outpatient in [place]. Patient's last hemodialysis session was yesterday. He dialyzes on a Tuesday schedule. He has a right upper extremity AV fistula. Patient has been on dialy sis for the past 2 years. Past History Past Medical History: diabetes, dialysis, ESRD, hypertension, hyperlipidemia, renal failure, other (gastroparesis) Past Surgical History: cholecystectomy, Other (AV fistular creation) Social history: no significant social history Family history: diabetes, hypertension Medications and Allergies Allergies Allergy/AdvReac Type Severity Reaction Status Date / Time No Known Allergies Allergy Verified 08/23/18 15:01 Home Medications Medication Instructions Recorded Confirmed Last Taken Type Carvedilol [Coreg] 3.125 mg PO BID 06/07/18 06/15/18 06/14/18 History Ergocalciferol [Vitamin D2] 1 cap PO 1XW 06/07/18 06/15/18 06/12/18 History Gabapentin [Neurontin] 100 mg PO TID 06/07/18 06/15/18 06/14/18 History Insulin Aspart [NovoLOG Flexpen] 5 units SC TIDAC 06/07/18 06/15/18 06/14/18 History Aspirin EC [Aspirin Enteric Coated 81 mg PO QDAY #30 tablet. 06/15/18 Unknown Rx TAB] Clopidogrel [Plavix] 75 mg PO QDAY #30 tablet 06/15/18 Unknown Rx Ondansetron [Zofran Odt] 4 mg PO Q8HR PRN #10 tab.rapdis 08/17/18 Unknown Rx Active Meds: Active Medications Acetaminophen (Tylenol) 650 mg PO Q4H PRN PRN Reason: Pain MILD(1-3)/Fever >100.5/[place] Clonidine HCl (Catapres-Tts Patch) 0.2 mg TD We [facility] Last Admin: 08/23/18 23:07 Dose: Not Given Documented by: Heparin Sodium (Porcine) (Heparin) 5,000 unit SUB-Q Q12HR [facility] Hydromorphone HCl (Dilaudid) 0.5 mg IV Q3H PRN PRN Reason: Pain , Severe (7-10) Sodium Chloride (Nacl 0.9% 1000 Ml) 1,000 mls @ 42 mls/hr IV DIRECT [facility] Last Admin: 08/23/18 23:08 Dose: 42 mls/hr Documented by: Insulin Human Lispro (Humalog) 0 unit SUB-Q Q6HR [facility]; Protocol Last Admin: 08/24/18 05:54 Dose: Not Given Documented by: Metoclopramide HCl (Reglan) 5 mg IV Q6H PRN PRN Reason: Nausea And Vomiting Ondansetron HCl (Zofran) 4 mg IV Q3H PRN PRN Reason: Nausea And Vomiting Last Admin: 08/24/18 00:38 Dose: 4 mg Documented by: Pantoprazole Sodium (Protonix) 40 mg IV BID [facility] Last Admin: 08/24/18 03:16 Dose: 40 mg Documented by: Sodium Chloride (Sodium Chloride Flush Syringe 10 Ml) 10 ml IV BID [facility] Last Admin: 08/23/18 23:31 Dose: 10 ml Documented by: Sodium Chloride (Sodium Chloride Flush Syringe 10 Ml) 10 ml IV PRN PRN PRN Reason: LINE FLUSH Review of Systems All systems: negative Constitutional: poor appetite Gastrointestinal: abdominal pain, nausea, vomiting Exam - Vital Signs Vital signs: Vital Signs Temp Pulse Resp BP Pulse Ox 98.2 F 115 H 20 109/74 97 08/23/18 14:54 08/23/18 14:54 08/23/18 14:54 08/23/18 14:54 08/23/18 14:54 - General Appearance General appearance: well-developed, well-nourished, appears stated age EENT: ATNC, PERRL Neck: Present: neck supple, trachea midline Respiratory: Clear to Ascultation, Normal Exam Heart: regular, normal heart rate Gastrointestinal: Present: normal Integumentary: no rash, warm and dry Neurologic: no focal deficit, alert and oriented x3 Musculoskeletal: Present: other (-edema) Psychiatric: mood/affect appropriate, cooperative Results - Lab Results 08/24/18 05:57 08/24/18 05:57 Most recent lab results Calcium 8.8 mg/dL (8.4-10.2) 08/24/18 05:57 Assessment and Plan - Patient Problems (1) Gastroparesis Current Visit: Yes Status: Chronic Plan to address problem: Symptom treatment per primary attending. Would recommend gastroenterology evaluation as inpatient. We'll continue to follow. (2) ESRD (end stage renal disease) Current Visit: Yes Status: Chronic Plan to address problem: We'll set patient up for inpatient hemodialysis on a Tuesday schedule. (3) IDDM (insulin dependent diabetes mellitus) Current Visit: Yes Status: Chronic Plan to address problem: Diabetes management per primary attending. (4) HTN (hypertension) Current Visit: Yes Status: Chronic Qualifiers: Hypertension type: essential hypertension Qualified Code(s): I10 - Essential (primary) hypertension Plan to address problem: Monitor on current antihypertensive regimen.
[2018-08-24] MEDS ORDERED: NACL 0.9% 100 ML IV PRN (08:07)
[2018-08-24] MEDS: DILAUDID IV PRN ×3 (09:08→23:19)
[2018-08-24] MEDS: HEPARIN SUB-Q SCH ×2 (09:08→21:54)
--- NOTE | 2018-08-24 09:26 | Progress Note ---
Assessment and Plan Assessment and plan: (1) Intractable nausea and vomiting IV Zofran and IV Reglan IVfluids at 42 ml/hr bcoz of ESRD IV Protonix, [place]rell, status post (2) Gastroparesis NM emptying study not ordered Symtomatic treatment. Clear Liquids (3) Acute abdominal pain Sec to Gastroparesis IV Dilaudid 0.5 mg q3 h prn. (4) IDDM (insulin dependent diabetes mellitus) SSI Coverage for now (5) ESRD (end stage renal disease) Cont HD Nephrology (6) HTN (hypertension) Catapres patch initiated Oral anti hpertensives to be resumed when patient able to tolerate PO (7) Vitamin D deficiency Cont Vit D (8) CAD (coronary artery disease): Cont Plavix (9) DVT prophylaxis On Heparin and GI prophylaxis History Interval history: Patient was seen and evaluated this morning, patient still complaining of abdominal pain, nausea but no vomiting this morning. Patient said only Dilaudid or ketamine is working for his abdominal pain. Hospitalist Physical - Physical exam Narrative exam: Not in cardiopulmonary distress. The patient is obese. Vital signs as documented. Head exam is unremarkable. No scleral icterus . Neck is without jugular venous distension, thyromegaly, or carotid bruits. Lungs are clear to auscultation. Cardiac exam reveals regular rate and Rhythm. First and second heart sounds normal. No murmurs, rubs or gallops. Abdominal exam reveals normal bowel sounds, no masses, no organomegaly and no aortic enlargement. Extremities are nonedematous and both femoral and pedal pulses are normal. WIRE ANNEALER: Alert and oriented 3. No focal weakness. - Constitutional Vitals: Temp Pulse Resp BP Pulse Ox 98.3 F 87 18 117/76 96 08/24/18 04:53 08/24/18 04:53 08/24/18 04:53 08/24/18 04:53 08/24/18 04:53 General appearance: Present: mild distress, well-nourished Results - Labs CBC & Chem 7: 08/24/18 05:57 08/24/18 05:57 Labs: Laboratory Last Values WBC 10.0 K/mm3 (4.5-11.0) 08/24/18 05:57 RBC 4.73 M/mm3 (3.65-5.03) 08/24/18 05:57 Hgb 14.2 gm/dl (11.8-15.2) 08/24/18 05:57 Hct 42.1 % (35.5-45.6) 08/24/18 05:57 MCV 89 fl (84-94) 08/24/18 05:57 MCH 30 pg (28-32) 08/24/18 05:57 MCHC 34 % (32-34) 08/24/18 05:57 RDW 21.9 % (13.2-15.2) H 08/24/18 05:57 Plt Count 280 K/mm3 (140-440) 08/24/18 05:57 Lymph % (Auto) 20.4 % (13.4-35.0) 08/24/18 05:57 [place] % (Auto) 13.1 % (0.0-7.3) H 08/24/18 05:57 Eos % (Auto) 0.2 % (0.0-4.3) 08/24/18 05:57 Baso % (Auto) 0.4 % (0.0-1.8) 08/24/18 05:57 Lymph # 2.0 K/mm3 (1.2-5.4) 08/24/18 05:57 [place] # 1.3 K/mm3 (0.0-0.8) H 08/24/18 05:57 Eos # 0.0 K/mm3 (0.0-0.4) 08/24/18 05:57 Baso # 0.0 K/mm3 (0.0-0.1) 08/24/18 05:57 Seg Neutrophils % 65.9 % (40.0-70.0) 08/24/18 05:57 Seg Neutrophils # 6.6 K/mm3 (1.8-7.7) 08/24/18 05:57 Sodium 139 mmol/L (137-145) 08/24/18 05:57 Potassium 4.3 mmol/L (3.6-5.0) 08/24/18 05:57 Chloride 97.1 mmol/L (98-107) L 08/24/18 05:57 Carbon Dioxide 21 mmol/L (22-30) L 08/24/18 05:57 25 mmol/L 08/24/18 05:57 BUN 41 mg/dL (9-20) H 08/24/18 05:57 11.0 mg/dL (0.8-1.5) H 08/24/18 05:57 Estimated GFR 6 ml/min 08/24/18 05:57 4 % 08/24/18 05:57 Glucose 150 mg/dL (75-100) H 08/24/18 05:57 POC Glucose 145 (70-105) H 08/24/18 05:45 8.0 % (4-6) H 08/23/18 15:10 Calcium 8.8 mg/dL (8.4-10.2) 08/24/18 05:57 0.70 mg/dL (0.1-1.2) 08/24/18 05:57 AST 14 units/L (5-40) 08/24/18 05:57 ALT 7 units/L (7-56) 08/24/18 05:57 110 units/L (35-129) 08/24/18 05:57 9.4 g/dL (6.3-8.2) H 08/24/18 05:57 4.3 g/dL (3.9-5) 08/24/18 05:57 0.8 % 08/24/18 05:57 64 units/L (13-60) H 08/23/18 15:10 Active Medications - Current Medications Current Medications: Generic Name Dose Route Start Last Admin Trade Name Freq PRN Reason Stop Dose Admin Acetaminophen 650 mg 08/23/18 22:00 Tylenol PO Q4H PRN Pain MILD(1-3)/Fever >100.5/[place] Clonidine HCl 0.2 mg 08/23/18 22:15 08/23/18 23:07 Catapres-Tts Patch TD Not Given We FABI Heparin Sodium (Porcine) 5,000 unit 08/24/18 10:00 08/24/18 09:08 Heparin SUB-Q 5,000 unit Q12HR [facility] Administration Hydromorphone HCl 0.5 mg 08/23/18 22:00 08/24/18 09:08 Dilaudid IV 0.5 mg Q3H PRN Administration Pain , Severe (7-10) Sodium Chloride 1,000 mls @ 42 mls/hr 08/23/18 22:00 08/23/18 23:08 Nacl 0.9% 1000 Ml IV 42 mls/hr DIRECT [facility]ABI Administration Sodium Chloride 100 mls @ 999 mls/hr 08/24/18 08:07 Nacl 0.9% IV MAGDI PRN Hypotension Insulin Human Lispro 0 unit 08/24/18 00:00 08/24/18 05:54 Humalog SUB-Q Not Given Q6HR [facility] Protocol Metoclopramide HCl 5 mg 08/23/18 22:00 Reglan IV Q6H PRN Nausea And Vomiting Ondansetron HCl 4 mg 08/23/18 22:00 08/24/18 00:38 Zofran IV 4 mg Q3H PRN Administration Nausea And Vomiting Pantoprazole Sodium 40 mg 08/24/18 02:00 08/24/18 03:16 Protonix IV 40 mg BID FABI Administration Sodium Chloride 10 ml 08/23/18 22:00 08/23/18 23:31 Sodium Chloride Flush Syringe 10 Ml IV 10 ml BID [facility] Administration Sodium Chloride 10 ml 08/23/18 22:00 Sodium Chloride Flush Syringe 10 Ml IV PRN PRN LINE FLUSH
[2018-08-24] MEDS: SODIUM CHLORIDE FLUSH SYRINGE 10 ML IV SCH ×2 (10:46→21:55)
[2018-08-24 11:47] LABS: Hepatitis B Surface Antigen Non-Reactive (Negative); Hepatitis C Virus Antibody Non-Reactive (NonReactive)
--- NOTE | 2018-08-24 17:15 | Consultation ---
History of Present Illness - Reason for Consult Consult date: 08/24/18 Coffee ground emesis Requesting physician: IBETH KIM - History of Present Illness Mr. Smith is a 58-year-old man with a history of diabetes and end-stage renal diseaseon hemodialysis. He has a history of gastroparesis diagnosed by his primary manager copy, Dr. Knight. He presented to the emergency room after developing abdominal pain with recurrent nausea and vomiting more than 20 times after dialysis yesterday. He noted that the vomitus later on was dark and brownish. He saw no fresh red blood. Patient states that he has a history of nausea and vomiting as well as abdominal pain after dialysis for the last 2 weeks. It was bad enough that he presented to the emergency room last weekend was treated as an outpatient. He has had similar problems off and on over the last 2-3 years and undergone an upper endoscopy approximately a year ago by Dr. Knight. He was diagnosed with g astroparesis. Of note, when he develops this abdominal pain which is upper abdominal, he notes that only Dilaudid or ketamine seemed to be effective in alleviating his symptoms. Bowel movements are regular on a daily basis. He denies melena or hematochezia. He denies aspirin or non-steroidal usage. He denies GERD symptoms. He states his diabetes is under fair control with hemoglobin A1c ranging from 6-8. He denies significant weight loss. Today, he feels well. He denies abdominal pain nausea or vomiting. He is tolerating clear liquids well. Past History Past Medical History: diabetes, dialysis, ESRD, hypertension, hyperlipidemia, renal failure, other (gastroparesis) Past Surgical History: cholecystectomy, Other (AV fistular creation) Social history: no significant social history Family history: diabetes, hypertension Medications and Allergies Allergies Allergy/AdvReac Type Severity Reaction Status Date / Time No Known Allergies Allergy Verified 08/23/18 15:01 Home Medications Medication Instructions Recorded Confirmed Last Taken Type Carvedilol [Coreg] 3.125 mg PO BID 06/07/18 06/15/18 06/14/18 History Ergocalciferol [Vitamin D2] 1 cap PO 1XW 06/07/18 06/15/18 06/12/18 History Gabapentin [Neurontin] 100 mg PO TID 06/07/18 06/15/18 06/14/18 History Insulin Aspart [NovoLOG Flexpen] 5 units SC TIDAC 06/07/18 06/15/18 06/14/18 History Aspirin EC [Aspirin Enteric Coated 81 mg PO QDAY #30 tablet. 06/15/18 Unknown Rx TAB] Clopidogrel [Plavix] 75 mg PO QDAY #30 tablet 06/15/18 Unknown Rx Ondansetron [Zofran Odt] 4 mg PO Q8HR PRN #10 tab.rapdis 08/17/18 Unknown Rx Active Meds: Active Medications Acetaminophen (Tylenol) 650 mg PO Q4H PRN PRN Reason: Pain MILD(1-3)/Fever >100.5/[place] Clonidine HCl (Catapres-Tts Patch) 0.2 mg TD We [facility] Last Admin: 08/23/18 23:07 Dose: Not Given Documented by: Heparin Sodium (Porcine) (Heparin) 5,000 unit SUB-Q Q12HR [facility] Last Admin: 08/24/18 09:08 Dose: 5,000 unit Documented by: Hydromorphone HCl (Dilaudid) 0.5 mg IV Q3H PRN PRN Reason: Pain , Severe (7-10) Last Admin: 08/24/18 09:08 Dose: 0.5 mg Documented by: Sodium Chloride (Nacl 0.9% 1000 Ml) 1,000 mls @ 42 mls/hr IV DIRECT [facility] Last Admin: 08/23/18 23:08 Dose: 42 mls/hr Documented by: Sodium Chloride (Nacl 0.9%) 100 mls @ 999 mls/hr IV MAGDI PRN PRN Reason: Hypotension Insulin Human Lispro (Humalog) 0 unit SUB-Q Q6HR [facility]; Protocol Last Admin: 08/24/18 12:42 Dose: 6 unit Documented by: Metoclopramide HCl (Reglan) 5 mg IV Q6H PRN PRN Reason: Nausea And Vomiting Ondansetron HCl (Zofran) 4 mg IV Q3H PRN PRN Reason: Nausea And Vomiting Last Admin: 08/24/18 00:38 Dose: 4 mg Documented by: Pantoprazole Sodium (Protonix) 40 mg IV BID [facility] Last Admin: 08/24/18 09:47 Dose: 40 mg Documented by: Sodium Chloride (Sodium Chloride Flush Syringe 10 Ml) 10 ml IV BID [facility] Last Admin: 08/24/18 10:46 Dose: 10 ml Documented by: Sodium Chloride (Sodium Chloride Flush Syringe 10 Ml) 10 ml IV PRN PRN PRN Reason: LINE FLUSH Review of Systems All systems: negative (as per HPI) Exam - Constitutional Vitals: Temp Pulse Resp BP Pulse Ox 97.6 F 97 H 20 98/68 98 08/24/18 11:02 08/24/18 11:02 08/24/18 11:02 08/24/18 11:02 08/24/18 11:02 General appearance: Present: no acute distress - EENT Eyes: Present: PERRL, EOM intact ENT: hearing intact - Respiratory Respiratory effort: normal Respiratory: bilateral: CTA - Cardiovascular Rhythm: regular Heart Sounds: Present: S1 & S2 - Extremities Extremities: No edema, abnormal (RUE AV fistula, patent with thrill palpated) - Abdominal General gastrointestinal: Present: soft, non-tender Results - Labs CBC & Chem 7: 08/24/18 05:57 08/24/18 05:57 Labs: Abnormal lab results 08/23/18 08/23/18 08/24/18 Range/Units 15:10 20:19 05:45 RDW (13.2-15.2) % [place] % (Auto) (0.0-7.3) % [place] # (0.0-0.8) K/mm3 Chloride (98-107) mmol/L Carbon Dioxide (22-30) mmol/L BUN (9-20) mg/dL Creatinine (0.8-1.5) mg/dL Glucose (75-100) mg/dL POC Glucose 238 H 145 H (70-105) Hemoglobin A1c 8.0 H (4-6) % Total Protein (6.3-8.2) g/dL 08/24/18 08/24/18 08/24/18 Range/Units 05:57 05:57 11:12 RDW 21.9 H (13.2-15.2) % [place] % (Auto) 13.1 H (0.0-7.3) % [place] # 1.3 H (0.0-0.8) K/mm3 Chloride 97.1 L (98-107) mmol/L Carbon Dioxide 21 L (22-30) mmol/L BUN 41 H (9-20) mg/dL Creatinine 11.0 H (0.8-1.5) mg/dL Glucose 150 H (75-100) mg/dL POC Glucose 257 H (70-105) Hemoglobin A1c (4-6) % Total Protein 9.4 H (6.3-8.2) g/dL Assessment and Plan 1. Coffee ground emesis - described in the ER. Likely a Megan-Ibarra tear given recurrent bouts of nausea and vomiting. These have resolved. Patient's hemoglobin is normal. There's been no melena or hematochezia. No further evaluation at this point in time. 2. Recurrent abdominal pain and nausea and vomiting - etiology unclear. This could be related to gastroparesis, but he has been worse over the last 2 weeks. The association after dialysis is noteworthy and there could be a component related to electrolyte shifts. Acid reflux disease is also a consideration. Patient is doing well at present and I would advance his diet and monitor. - chronic PPI empirically - if this persists, consider altering dialysate to diminish electrolyte abnormalities - adv diet
[2018-08-25] MEDS: HumaLOG SUB-Q SCH ×5 (00:10→18:04)
--- NOTE | 2018-08-25 09:55 | Gastroenterology Progress Note ---
Assessment and Plan 1.coffee-ground emesis 2.recurrent abd pain 3.N/V 4.H/o gastroparesis 5.ESRD on HD -H/H WNL -continue to monitor H/H and transfuse as needed -last EGD by Dr. sotomayor over a year ago with dx of gastroparesis per pt report -patient reports recurrent N/V overnight with last episode around 3 am this morning with continued dark emesis. Admits to continued abd pain. No hematemesis, melena, or hematochezia -etiology-abd pain/Nausea/Vomiting-likely 2/2 gastroparesis with +/- component related to electrolyte shifts. CGE likely 2/2 M-W tear given recurrent bouts of N/V. -will schedule for EGD today for further evaluation -Keep NPO -continue PPI, antiemetics, and supportive care -avoid narcotics for this may exacerbate symptoms -optimize glycemic control -if EGD negative and symptoms persists, consider altering dialysate to diminish electrolyte abnormalities -will follow Subjective Date of service: 08/25/18 Principal diagnosis: vomiting; dark emesis Interval history: No acute distress. Reports recurrent N/V overnight and early this am with continued dark emesis. No hematemesis or hematochezia. Objective - Constitutional Vitals: Temp Pulse Resp BP Pulse Ox 97.9 F 83 16 117/76 96 08/25/18 05:54 08/25/18 05:54 08/25/18 05:54 08/25/18 05:54 08/25/18 05:54 General appearance: no acute distress - Respiratory Respiratory effort: normal - Gastrointestinal General gastrointestinal: Present: soft, tender (slight TTP), non-distended, normal bowel sounds - Neurologic Neurological: alert and oriented x3 - Labs CBC & Chem 7: 08/24/18 05:57 08/24/18 05:57 Labs: Laboratory Results - last 24 hr 08/24/18 08/24/18 08/24/18 10:34 11:12 17:21 POC Glucose 257 H 69 L Hepatitis A IgM Ab Non-reactive Hep Bs Antigen Non-reactive Hep B Core IgM Ab Non-reactive Hepatitis C Antibody Non-reactive 08/24/18 08/24/18 08/25/18 18:01 22:13 06:03 POC Glucose 114 H 208 H 177 H Hepatitis A IgM Ab Hep Bs Antigen Hep B Core IgM Ab Hepatitis C Antibody
[2018-08-25] MEDS: PROTONIX IV SCH ×2 (12:30→21:03)
[2018-08-25] MEDS: HEPARIN SUB-Q SCH ×2 (12:31→21:04)
[2018-08-25] MEDS: SODIUM CHLORIDE FLUSH SYRINGE 10 ML IV SCH (12:31)
--- NOTE | 2018-08-25 12:39 | Progress Note ---
Assessment and Plan Assessment and plan: (1) Intractable nausea and vomiting IV Zofran and IV Reglan IVfluids at 42 ml/hr bcoz of ESRD IV Protonix Patient still has nausea and vomiting GI will do EGD today (2) Gastroparesis NM emptying study not ordered Symtomatic treatment. Clear Liquids (3) Acute abdominal pain Sec to Gastroparesis IV Dilaudid 0.5 mg q3 h prn. (4) IDDM (insulin dependent diabetes mellitus) SSI Coverage for now (5) ESRD (end stage renal disease) Cont HD Nephrology (6) HTN (hypertension) Catapres patch initiated Oral anti hpertensives to be resumed when patient able to tolerate PO (7) Vitamin D deficiency Cont Vit D (8) CAD (coronary artery disease): Cont Plavix (9) DVT prophylaxis On Heparin and GI prophylaxis Disposition; follow EGD report and GI recommendations. History Interval history: Patient was seen and evaluated this morning, patient still complaining of abdominal pain, nausea and vomiting. Hospitalist Physical - Physical exam Narrative exam: Not in cardiopulmonary distress. The patient is obese. Vital signs as documented. Head exam is unremarkable. No scleral icterus . Neck is without jugular venous distension, thyromegaly, or carotid bruits. Lungs are clear to auscultation. Cardiac exam reveals regular rate and Rhythm. First and second heart sounds normal. No murmurs, rubs or gallops. Abdominal exam reveals normal bowel sounds, no masses, no organomegaly and no aortic enlargement. Extremities are nonedematous and both femoral and pedal pulses are normal. PROGRAM DIRECTOR AIR TALENT: Alert and oriented 3. No focal weakness. - Constitutional Vitals: Temp Pulse Resp BP Pulse Ox 98.0 F 90 18 133/82 96 08/25/18 11:15 08/25/18 11:15 08/25/18 11:15 08/25/18 11:15 08/25/18 05:54 General appearance: Present: no acute distress Results - Labs CBC & Chem 7: 08/24/18 05:57 08/24/18 05:57 Labs: Laboratory Last Values WBC 10.0 K/mm3 (4.5-11.0) 08/24/18 05:57 RBC 4.73 M/mm3 (3.65-5.03) 08/24/18 05:57 Hgb 14.2 gm/dl (11.8-15.2) 08/24/18 05:57 Hct 42.1 % (35.5-45.6) 08/24/18 05:57 MCV 89 fl (84-94) 08/24/18 05:57 MCH 30 pg (28-32) 08/24/18 05:57 MCHC 34 % (32-34) 08/24/18 05:57 RDW 21.9 % (13.2-15.2) H 08/24/18 05:57 Plt Count 280 K/mm3 (140-440) 08/24/18 05:57 Lymph % (Auto) 20.4 % (13.4-35.0) 08/24/18 05:57 [place] % (Auto) 13.1 % (0.0-7.3) H 08/24/18 05:57 Eos % (Auto) 0.2 % (0.0-4.3) 08/24/18 05:57 Baso % (Auto) 0.4 % (0.0-1.8) 08/24/18 05:57 Lymph # 2.0 K/mm3 (1.2-5.4) 08/24/18 05:57 [place] # 1.3 K/mm3 (0.0-0.8) H 08/24/18 05:57 Eos # 0.0 K/mm3 (0.0-0.4) 08/24/18 05:57 Baso # 0.0 K/mm3 (0.0-0.1) 08/24/18 05:57 Seg Neutrophils % 65.9 % (40.0-70.0) 08/24/18 05:57 Seg Neutrophils # 6.6 K/mm3 (1.8-7.7) 08/24/18 05:57 Sodium 139 mmol/L (137-145) 08/24/18 05:57 Potassium 4.3 mmol/L (3.6-5.0) 08/24/18 05:57 Chloride 97.1 mmol/L (98-107) L 08/24/18 05:57 Carbon Dioxide 21 mmol/L (22-30) L 08/24/18 05:57 25 mmol/L 08/24/18 05:57 BUN 41 mg/dL (9-20) H 08/24/18 05:57 11.0 mg/dL (0.8-1.5) H 08/24/18 05:57 Estimated GFR 6 ml/min 08/24/18 05:57 4 % 08/24/18 05:57 Glucose 150 mg/dL (75-100) H 08/24/18 05:57 POC Glucose 144 (70-105) H 08/25/18 12:07 8.0 % (4-6) H 08/23/18 15:10 Calcium 8.8 mg/dL (8.4-10.2) 08/24/18 05:57 0.70 mg/dL (0.1-1.2) 08/24/18 05:57 AST 14 units/L (5-40) 08/24/18 05:57 ALT 7 units/L (7-56) 08/24/18 05:57 110 units/L (35-129) 08/24/18 05:57 9.4 g/dL (6.3-8.2) H 08/24/18 05:57 4.3 g/dL (3.9-5) 08/24/18 05:57 0.8 % 08/24/18 05:57 64 units/L (13-60) H 08/23/18 15:10 Hepatitis A IgM Ab Non-reactive (NonReactive) 08/24/18 10:34 Hep Bs Antigen Non-reactive (Negative) 08/24/18 10:34 Hep B Core IgM Ab Non-reactive (NonReactive) 08/24/18 10:34 Non-reactive (NonReactive) 08/24/18 10:34 Active Medications - Current Medications Current Medications: Generic Name Dose Route Start Last Admin Trade Name Freq PRN Reason Stop Dose Admin Acetaminophen 650 mg 08/23/18 22:00 Tylenol PO Q4H PRN Pain MILD(1-3)/Fever >100.5/[place]IL[place]URN Clonidine HCl 0.2 mg 08/23/18 22:15 08/23/18 23:07 Catapres-Tts Patch TD Not Given We FABI Heparin Sodium (Porcine) 5,000 unit 08/24/18 10:00 08/25/18 12:31 Heparin SUB-Q Not Given Q12HR FABI Hydromorphone HCl 0.5 mg 08/23/18 22:00 08/24/18 23:19 Dilaudid IV 0.5 mg Q3H PRN Administration Pain , Severe (7-10) Sodium Chloride 1,000 mls @ 42 mls/hr 08/23/18 22:00 08/23/18 23:08 Nacl 0.9% 1000 Ml IV 42 mls/hr DIRECT FABI Administration Sodium Chloride 100 mls @ 999 mls/hr 08/24/18 08:07 Nacl 0.9% IV MAGDI PRN Hypotension Insulin Human Lispro 0 unit 08/24/18 00:00 08/25/18 12:32 Humalog SUB-Q Not Given Q6HR [facility] Protocol Metoclopramide HCl 5 mg 08/23/18 22:00 08/24/18 23:19 Reglan IV 5 mg Q6H PRN Administration Nausea And Vomiting Ondansetron HCl 4 mg 08/23/18 22:00 08/24/18 00:38 Zofran IV 4 mg Q3H PRN Administration Nausea And Vomiting Pantoprazole Sodium 40 mg 08/24/18 02:00 08/25/18 12:30 Protonix IV 40 mg BID FABI Administration Sodium Chloride 10 ml 08/23/18 22:00 08/25/18 12:31 Sodium Chloride Flush Syringe 10 Ml IV 10 ml BID FABI Administration Sodium Chloride 10 ml 08/23/18 22:00 Sodium Chloride Flush Syringe 10 Ml IV PRN PRN LINE FLUSH Nutrition/Malnutrition Assess - Dietary Evaluation Nutrition/Malnutrition Findings: Nutrition Notes Start: 08/24/18 16:08 Freq: Status: Active Protocol: Document 08/24/18 16:08 (Rec: 08/24/18 16:17 [email or web address]) Nutrition Notes Need for Assessment generated from: client success manager,MST Initial or Follow up Assessment Current Diagnosis Coronary Artery Disease, Diabetes,Hypertension Other Pertinent Diagnosis ESRD on HD, Gastroparesis Current Diet Clear liquid Labs/Tests A1c 8 Pertinent Medications Reviewed Height 6 ft Weight 111 kg Usual Body Weight 110 kg [place] Body Weight (kg) 80.90 BMI 33.2 Subjective/Other Information Screened for skin risk and malnutrition. Simone 19 points. 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 Stated that his appetite is poor now and that he drank a few spoonfuls of broth, drank some water, and at his jello. Admitted to nausea but no vomiting. Stated dry wt is 110 kg. No temporal or orbital wasting . Noted A1c of 8. Pt already familiar w/DM diet education. Reviewed typical day of pts diet and gave suggestions to bring down A1c. Burn Absent Trauma Absent #1 Nutrition Diagnosis Inadequate oral intake Etiology decreased apeptite, gastroparesis As Evidenced by Signs and Symptoms pt on clear liquid diet Is patient on ventilator? No Is Patient Ambulatory and/or Out of Bed Yes REE-([place]-ambulatory/OOB) [ 2558.400 NUTR.[id number]] Kcal/Kg value to use for calculation 19 Approximate Energy Requirements Using 2109 kcal/Kg Calculation Used for Recommendations Kcal/kg Additional Notes Protein Needs: 97-105g (1.2-1. 3g/kg IBW) Fluid Needs: 1 ml/kcal Nutrition Intervention Change Diet Order: Advance diet when medically able Add Supplement/Snack (indicate name/kcal Ensure Clear 1 daily /protein ) Provides kCal: 240 Provides Protein (gm) 8 Goal #1 Diet advancement Anticipated Discharge Needs: Unable to determine at this time Follow-Up By: 08/28/18 Additional Comments Follow for PO and ONS intakes
--- NOTE | 2018-08-25 13:41 | Progress Note ---
Assessment and Plan - Patient Problems (1) Gastroparesis Current Visit: Yes Status: Chronic Plan to address problem: Symptom treatment per primary attending. Gastroenterology evaluation as inpatient noted with plan for EGD today. (2) ESRD (end stage renal disease) Current Visit: Yes Status: Chronic Plan to address problem: We'll set patient up for inpatient hemodialysis on a Tuesday schedule. (3) IDDM (insulin dependent diabetes mellitus) Current Visit: Yes Status: Chronic Plan to address problem: Diabetes management per primary attending. (4) HTN (hypertension) Current Visit: Yes Status: Chronic Qualifiers: Hypertension type: essential hypertension Qualified Code(s): I10 - Essential (primary) hypertension Plan to address problem: Monitor on current antihypertensive regimen. Subjective Date of service: 08/25/18 Principal diagnosis: vomiting; dark emesis Interval history: No new issues overnight. Pending EGD this afternoon. Tolerated HD well this am. Objective - Vital Signs Vital signs: Vital Signs - 12hr 08/25/18 08/25/18 08/25/18 05:54 08:00 08:15 Temperature 97.9 F 98.0 F Pulse Rate 83 83 87 Respiratory 16 18 Rate Blood Pressure 117/76 113/75 102/75 O2 Sat by Pulse 96 Oximetry 08/25/18 08/25/18 08/25/18 08:30 08:35 08:45 Temperature Pulse Rate 86 91 H 91 H Respiratory Rate Blood Pressure 84/61 97/68 97/68 O2 Sat by Pulse Oximetry 08/25/18 08/25/18 08/25/18 09:00 09:15 09:30 Temperature Pulse Rate 90 97 H 96 H Respiratory Rate Blood Pressure 83/61 91/58 97/63 O2 Sat by Pulse Oximetry 08/25/18 08/25/18 08/25/18 09:45 10:00 10:15 Temperature Pulse Rate 90 88 85 Respiratory Rate Blood Pressure 92/63 113/71 117/74 O2 Sat by Pulse Oximetry 08/25/18 08/25/18 08/25/18 10:30 10:45 11:00 Temperature Pulse Rate 86 86 84 Respiratory Rate Blood Pressure 109/78 111/77 110/76 O2 Sat by Pulse Oximetry 08/25/18 08/25/18 11:15 11:58 Temperature 98.0 F 97.6 F Pulse Rate 90 100 H Respiratory 18 22 Rate Blood Pressure 133/82 103/73 O2 Sat by Pulse 98 Oximetry - General Appearance General appearance: well-developed, well-nourished, appears stated age EENT: ATNC, PERRL Neck: no JVD, no thyromegaly Respiratory: Present: Clear to Ascultation, Normal Exam Cardiology: regular, S1S2 Gastrointestinal: normal, normoactive bowel sounds Integumentary: no rash, warm and dry Neurologic: no focal deficit, no asterixis Psychiatric: mood/affect appropriate, cooperative - Lab 08/24/18 05:57 08/24/18 05:57 Most recent lab results Calcium 8.8 mg/dL (8.4-10.2) 08/24/18 05:57 - Allied health notes Allied health notes reviewed: nursing Medications & Allergies - Medications Allergies/Adverse Reactions: Allergies No Known Allergies Allergy (Verified 08/23/18 15:01) Home Medications: Home Medications Medication Instructions Recorded Confirmed Last Taken Type Carvedilol [Coreg] 3.125 mg PO BID 06/07/18 06/15/18 06/14/18 History Ergocalciferol [Vitamin D2] 1 cap PO 1XW 06/07/18 06/15/18 06/12/18 History Gabapentin [Neurontin] 100 mg PO TID 06/07/18 06/15/18 06/14/18 History Insulin Aspart [NovoLOG Flexpen] 5 units SC TIDAC 06/07/18 06/15/18 06/14/18 History Aspirin EC [Aspirin Enteric Coated 81 mg PO QDAY #30 tablet.dr 06/15/18 Unknown Rx TAB] Clopidogrel [Plavix] 75 mg PO QDAY #30 tablet 06/15/18 Unknown Rx Ondansetron [Zofran Odt] 4 mg PO Q8HR PRN #10 tab.rapdis 08/17/18 Unknown Rx Active Medications: Generic Name Dose Route Start Last Admin Trade Name Freq PRN Reason Stop Dose Admin Acetaminophen 650 mg 08/23/18 22:00 Tylenol PO Q4H PRN Pain MILD(1-3)/Fever >100.5/[place] Clonidine HCl 0.2 mg 08/23/18 22:15 08/23/18 23:07 Catapres-Tts Patch TD Not Given We FABI Heparin Sodium (Porcine) 5,000 unit 08/24/18 10:00 07/05/19 12:31 Heparin SUB-Q Not Given Q12HR FABI Hydromorphone HCl 0.5 mg 08/23/18 22:00 08/24/18 23:19 Dilaudid IV 0.5 mg Q3H PRN Administration Pain , Severe (7-10) Sodium Chloride 1,000 mls @ 42 mls/hr 08/23/18 22:00 08/23/18 23:08 Nacl 0.9% 1000 Ml IV 42 mls/hr DIRECT FABI Administration Sodium Chloride 100 mls @ 999 mls/hr 08/24/18 08:07 Nacl 0.9% IV MAGDI PRN Hypotension Insulin Human Lispro 0 unit 08/24/18 00:00 08/25/18 12:32 Humalog SUB-Q Not Given Q6HR [facility] Protocol Metoclopramide HCl 5 mg 08/23/18 22:00 08/24/18 23:19 Reglan IV 5 mg Q6H PRN Administration Nausea And Vomiting Ondansetron HCl 4 mg 08/23/18 22:00 08/24/18 00:38 Zofran IV 4 mg Q3H PRN Administration Nausea And Vomiting Pantoprazole Sodium 40 mg 08/24/18 02:00 08/25/18 12:30 Protonix IV 40 mg BID FABI Administration Sodium Chloride 10 ml 08/23/18 22:00 08/25/18 12:31 Sodium Chloride Flush Syringe 10 Ml IV 10 ml BID FABI Administration Sodium Chloride 10 ml 08/23/18 22:00 Sodium Chloride Flush Syringe 10 Ml IV PRN PRN LINE FLUSH
[2018-08-25] MEDS ORDERED: WATER FOR IRRIG STERILE IR ONE (14:18)
[2018-08-25] MEDS ORDERED: NACL 0.9% 1000 ML 1,000 ML ONE (14:19)
[2018-08-25] MEDS ORDERED: NACL 0.9% 1000 ML 1,000 ML IV SCH (15:00)
[2018-08-25] MEDS ORDERED: DIPRIVAN 10 MG/ML IV ONE ×2 (15:03)
[2018-08-25] MEDS: NACL 0.9% 1000 ML 1,000 ML IV SCH ×2 (15:17→18:03)
[2018-08-25 16:04] LABS: Basophils # (Auto) 0.1 K/mm3 (0.0-0.1); Basophils % (Auto) 0.6 % (0.0-1.8); Eosinophils # (Auto) 0.1 K/mm3 (0.0-0.4); Eosinophils % (Auto) 0.6 % (0.0-4.3); Hematocrit 38.9 % (35.5-45.6); Lymphocytes # (Auto) 2.3 K/mm3 (1.2-5.4); Lymphocytes % (Auto) 24.3 % (13.4-35.0); Mean Corpuscular HGB Conc 33 % (32-34); Mean Corpuscular Volume 91 fl (84-94); Monocytes # (Auto) 1.3 K/mm3 (0.0-0.8); Monocytes % (Auto) 13.7 % (0.0-7.3); Platelet Count 261 K/mm3 (140-440); Red Blood Count 4.31 M/mm3 (3.65-5.03)
--- NOTE | 2018-08-25 16:20 | Operative Report ---
Operative Report Operative Report: Esophagogastroduodenoscopy Procedure Note Date of procedure: 08/25/2018 Endoscopist: Pito Guillermo MD Pre-op diagnosis: nausea/vomiting Post-op diagnosis: gastritis, gastric antral polyp Anesthesia: MAC Complications: No immediate complications Estimated blood loss: None Procedure: After consent was obtained, the patient was placed in the left lateral decubitus position. The olympus endoscope was inserted into the patient's mouth under direct vision, and advanced into the 2nd portion of the duodenum without difficulty. The patient tolerated the procedure well. The views of the mucosa were good. Patient's vital signs were monitored continuously throughout the procedure. Findings: The esophagus showed a small size hiatal hernia. No signs of esophagitis or bleeding. . Exam of the stomach showed mild gastritis in the antrum without bleeding. There was a 1 cm polyp in the antrum. Bx obtained. No definite signs of gastric ulcers noted. Retroflexion was performed. Cardia, fundus, and body appeared normal. The examined part of the duodenum appeared normal. Impression: 1. Mild antral gastritis. 2. Antral gastric polyp. Bx obtained. 3. A small hiatal hernia. 4. Otherwise, normal exam. 5. No signs of gastric outlet obstruction. Recommendations: - Continue with PPI. - resume diet with clear liquid diet. - Can start carafate if continues to have symptoms. - will follow.
[2018-08-25 16:22] LABS: Red Cell Distribution Width 22.2 % (13.2-15.2)
[2018-08-25] MEDS: DILAUDID IV PRN ×2 (17:28→21:03)
[2018-08-25 18:07] LABS: Calcium 8.4 mg/dL (8.4-10.2)
--- NOTE | 2018-08-25 18:09 | Anesthesia Consultation ---
Anesthesia Consult and Med Hx Date of service: 08/25/18 - Airway Anesthetic Teeth Evaluation: Edentulous ROM Head & Neck: Adequate Mental/Hyoid Distance: Adequate Mallampati Class: Class III Intubation Access Assessment: Possibly Difficult - Pulmonary Exam CTA: Yes - Cardiac Exam Cardiac Exam: RRR - Pre-Operative Health Status ASA Pre-Surgery Classification: ASA4 Proposed Anesthetic Plan: MAC - Pulmonary Hx Smoking: No Hx Respiratory Symptoms: No Hx Sleep Apnea: No - Cardiovascular System Hx Hypertension: Yes (reports no antihypertensive use since starting HD 2yrs ago) Hx Heart Attack/AMI: No Hx Percutaneous Transluminal Coronary Angioplasty (PTCA): No Hx Cardia Arrhythmia: No Hx Peripheral Vascular Disease: Yes (previously on plavix for PAD; held x2wks) - Central Nervous System Hx Seizures: No CVA: No Hx Psychiatric Problems: No - Gastrointestinal Hx Gastroesophageal Reflux Disease: Yes - Endocrine Hx End Stage Renal Disease: Yes (ESRD; last HD today) Hx Liver Disease: No Hx Insulin Dependent Diabetes: Yes (complicated by gastroparesis) Hx Thyroid Disease: No - Other Systems Hx Obesity: Yes - Additional Comments Anesthesia Medical History Comments: No hx anesthetic complications. Last episode vomiting >12hrs prior to procedure. No complaint of nausea.
--- NOTE | 2018-08-25 18:09 | Post Anesthesia Evaluation ---
- Post Anesthesia Evaluation Patient Participated: Yes Airway Patent: Yes Stable Respiratory Function: Yes Nausea/Vomiting: No Temp > 96.8F: Yes Pain Manageable: Yes Adequeate Hydration: Yes Anesthesia Complications: No
--- NOTE | 2018-08-25 18:09 | Anesthesia Day of Surgery ---
Anesthesia Day of Surgery - Day of Surgery Patient Examined: Yes Patient H&P Reviewed: Yes Patient is NPO: Yes
[2018-08-25] MEDS: ZOFRAN IV PRN (18:14)
[2018-08-25] MEDS ORDERED: CATAPRES-TTS PATCH TD SCH (21:00)
[2018-08-26] MEDS: SODIUM CHLORIDE FLUSH SYRINGE 10 ML IV SCH ×2 (02:29→11:09)
[2018-08-26 05:24] LABS: Calcium 8.3 mg/dL (8.4-10.2)
[2018-08-26] MEDS: HumaLOG SUB-Q SCH ×3 (08:11→12:39)
--- NOTE | 2018-08-26 09:47 | Gastroenterology Progress Note ---
Assessment and Plan 1. Intractable nausea/vomiting - improved; tolerating clears. s/p EGD w/o GOO; possibly due to underlying gastroparesis. advance diet as tolerated. 2. Gastric polyp - f/u path from EGD; pt will f/u with his GI physician (Dr Knight) for further management 3. IDDM 4. ESRD -will sign off, please call as needed or with questions. Subjective Date of service: 08/26/18 Principal diagnosis: vomiting; dark emesis Interval history: pt seen and examined. tolerating clears; denies abdominal pain Objective - Constitutional Vitals: Temp Pulse Resp BP Pulse Ox 98.3 F 94 H 18 91/51 96 08/26/18 06:07 08/26/18 06:07 08/26/18 06:07 08/26/18 06:07 08/26/18 06:07 General appearance: no acute distress - Respiratory Respiratory effort: normal Respiratory: bilateral: CTA - Cardiovascular Rhythm: regular Heart Sounds: Present: S1 & S2 - Gastrointestinal General gastrointestinal: Present: soft, non-tender, non-distended - Psychiatric Psychiatric: appropriate mood/affect - Labs CBC & Chem 7: 08/25/18 15:45 08/26/18 04:43 Labs: Laboratory Results - last 24 hr 08/25/18 08/25/18 08/25/18 12:07 15:45 17:15 WBC 9.4 RBC 4.31 Hgb 13.0 Hct 38.9 MCV 91 MCH 30 MCHC 33 RDW 22.2 H Plt Count 261 Lymph % (Auto) 24.3 [place] % (Auto) 13.7 H Eos % (Auto) 0.6 Baso % (Auto) 0.6 Lymph # 2.3 [place] # 1.3 H Eos # 0.1 Baso # 0.1 Seg Neutrophils % 60.8 Seg Neutrophils # 5.7 Sodium 136 L Potassium 3.9 Chloride 92.8 L Carbon Dioxide 25 Anion Gap 22 BUN 29 H Creatinine 10.3 H Estimated GFR 6 BUN/Creatinine Ratio 3 Glucose 181 H POC Glucose 144 H Calcium 8.4 Total Bilirubin 0.60 AST 10 ALT 7 Alkaline Phosphatase 106 Total Protein 8.9 H Albumin 4.0 Albumin/Globulin Ratio 0.8 08/25/18 08/26/18 08/26/18 17:52 00:16 04:43 WBC RBC Hgb Hct MCV MCH MCHC RDW Plt Count Lymph % (Auto) [place] % (Auto) Eos % (Auto) Baso % (Auto) Lymph # [place] # Eos # Baso # Seg Neutrophils % Seg Neutrophils # Sodium 136 L Potassium 3.9 Chloride 94.5 L Carbon Dioxide 23 Anion Gap 22 BUN 34 H Creatinine 11.7 H Estimated GFR 5 BUN/Creatinine Ratio 3 Glucose 172 H POC Glucose 190 H 177 H Calcium 8.3 L Total Bilirubin AST ALT Alkaline Phosphatase Total Protein Albumin Albumin/Globulin Ratio 08/26/18 06:16 WBC RBC Hgb Hct MCV MCH MCHC RDW Plt Count Lymph % (Auto) [place] % (Auto) Eos % (Auto) Baso % (Auto) Lymph # [place] # Eos # Baso # Seg Neutrophils % Seg Neutrophils # Sodium Potassium Chloride Carbon Dioxide Anion Gap BUN Creatinine Estimated GFR BUN/Creatinine Ratio Glucose POC Glucose 158 H Calcium Total Bilirubin AST ALT Alkaline Phosphatase Total Protein Albumin Albumin/Globulin Ratio
--- NOTE | 2018-08-26 10:40 | Discharge Summary ---
Providers - Providers Date of Admission: 08/23/18 17:20 Date of discharge: 08/26/18 Attending physician: NICOLE MILES 08/23/18 17:21 Consult to Physician [CONS] Stat Comment: Consulting Provider: HERVE ALEXANDER Physician Instructions: Reason For Exam: ESRD 08/23/18 18:23 Consult to Physician [CONS] Stat Comment: Consulting Provider: NOAH HAWKINS Physician Instructions: Reason For Exam: gastroparesis dark emesis Primary care physician: ABHIJEET KIM Hospitalization Reason for admission: N/V Condition: Stable Hospital course: Mr. Smith is a 58-year-old man with a history of diabetes and end-stage renal diseaseon hemodialysis. He has a history of gastroparesis diagnosed by his primary manager of financial planning, Dr. Wood. He presented to the emergency room after developing abdominal pain with recurrent nausea and vomiting more than 20 times after dialysis the day CLIENT SOLUTIONS MANAGER. He noted that the vomitus later on was dark and brownish. He saw no fresh red blood. Patient stated that he has a history of nausea and vomiting as well as abdominal pain after dialysis for the last 2 weeks. Pt was seen by GI and Nephrology. Pt was also noted to have intractable nausea/vomiting that later improved. He began tolerating clears. GI performed EGD w/o GOO; There was a 1 cm polyp in the antrum. Bx obtained. No definite signs of gastric ulcers noted. Retroflexion was performed. Cardia, fundus, and body appeared normal. Etiology was felt be sec to possibly underlying gastroparesis. Dedicated d/c 32 minutes Disposition: - TO HOME OR SELFCARE Time spent for discharge: 32 - Discharge Diagnoses (1) Diabetes mellitus Status: Acute (2) Intractable nausea and vomiting Status: Acute (3) CAD (coronary artery disease) Status: Chronic Qualifiers: Coronary Disease-Associated Artery/Lesion type: [place] artery [place] vs. transplanted heart: [place] heart Associated angina: without angina Qualified Code(s): I25.10 - Atherosclerotic heart disease of [place] coronary artery without angina pectoris (4) ESRD (end stage renal disease) Status: Chronic (5) Gastroparesis Status: Chronic (6) HTN (hypertension) Status: Chronic Qualifiers: Hypertension type: essential hypertension Qualified Code(s): I10 - Essential (primary) hypertension (7) IDDM (insulin dependent diabetes mellitus) Status: Chronic Core Measure Documentation - Palliative Care Palliative Care/ Comfort Measures: Not Applicable - Core Measures Any of the following diagnoses?: none Exam - Constitutional Vitals: Temp Pulse Resp BP Pulse Ox 98.3 F 94 H 18 91/51 96 08/26/18 06:07 08/26/18 06:07 08/26/18 06:07 08/26/18 06:07 08/26/18 06:07 General appearance: Present: no acute distress, well-nourished - EENT Eyes: Present: PERRL ENT: hearing intact, clear oral mucosa - Neck Neck: Present: supple, normal ROM - Respiratory Respiratory effort: normal Respiratory: bilateral: CTA - Cardiovascular Heart Sounds: Present: S1 & S2. Absent: rub, click - Extremities Extremities: pulses symmetrical, No edema Peripheral Pulses: within normal limits - Abdominal General gastrointestinal: Present: soft, non-tender, non-distended, normal bowel sounds Male genitourinary: Present: normal - Integumentary Integumentary: Present: clear, warm, dry - Musculoskeletal Musculoskeletal: gait normal, strength equal bilaterally - Psychiatric Psychiatric: appropriate mood/affect, intact judgment & insight - Neurologic Neurologic: CNII-XII intact, moves all extremities Plan Activity: no restrictions Weight Bearing Status: Full Weight Bearing Diet: diabetic Follow up with: ABHIJEET KIM MD [Primary Care Provider] - 3-5 Days RICHAR WOOD MD [Staff Physician] - 7 Days Prescriptions: Metoclopramide [Reglan] 10 mg PO ACHS #90 tablet
[2018-08-26] MEDS: HEPARIN SUB-Q SCH (11:09)
[2018-08-26] MEDS: PROTONIX IV SCH (11:09)
--- NOTE | 2018-08-26 11:36 | Progress Note ---
Assessment and Plan - Patient Problems (1) Gastroparesis Current Visit: Yes Status: Chronic Plan to address problem: Symptom treatment per primary attending. Gastroenterology evaluation as inpatient noted with EGD findings noted (gastritis and gastric polyp). (2) ESRD (end stage renal disease) Current Visit: Yes Status: Chronic Plan to address problem: We'll set patient up for inpatient hemodialysis on a Tuesday schedule. (3) IDDM (insulin dependent diabetes mellitus) Current Visit: Yes Status: Chronic Plan to address problem: Diabetes management per primary attending. (4) HTN (hypertension) Current Visit: Yes Status: Chronic Qualifiers: Hypertension type: essential hypertension Qualified Code(s): I10 - Ess ential (primary) hypertension Plan to address problem: Monitor on current antihypertensive regimen. Subjective Date of service: 08/26/18 Principal diagnosis: vomiting; dark emesis Interval history: No acute issues. EGD done with findings of gastritis and gastric polyp. GI recom mendations noted. Objective - Vital Signs Vital signs: Vital Signs - 12hr 08/26/18 08/26/18 00:08 06:07 Temperature 99.2 F 98.3 F Pulse Rate 98 H 94 H Respiratory 20 18 Rate Blood Pressure 164/90 91/51 O2 Sat by Pulse 99 96 Oximetry - General Appearance General appearance: well-developed, well-nourished, appears stated age EENT: ATNC, PERRL Neck: no JVD, no thyromegaly Respiratory: Present: Clear to Ascultation Cardiology: regular, S1S2 Gastrointestinal: normal Integumentary: no rash, warm and dry Neurologic: no focal deficit, no asterixis, alert and oriented x3 Musculoskeletal: other (-edema ) Psychiatric: mood/affect appropriate, cooperative - Lab 08/25/18 15:45 08/26/18 04:43 Most recent lab results Calcium 8.3 mg/dL (8.4-10.2) L 08/26/18 04:43 - Allied health notes Allied health notes reviewed: nursing Medications & Allergies - Medications Allergies/Adverse Reactions: Allergies No Known Allergies Allergy (Verified 08/23/18 15:01) Home Medications: Home Medications Medication Instructions Recorded Confirmed Last Taken Type Carvedilol [Coreg] 3.125 mg PO BID 06/07/18 06/15/18 06/14/18 History Ergocalciferol [Vitamin D2] 1 cap PO 1XW 06/07/18 06/15/18 06/12/18 History Gabapentin [Neurontin] 100 mg PO TID 06/07/18 06/15/18 06/14/18 History Insulin Aspart [NovoLOG Flexpen] 5 units SC TIDAC 06/07/18 06/15/18 06/14/18 Hi story Aspirin EC 81 mg PO QDAY #30 tablet. 06/15/18 Unknown Rx Clopidogrel [Plavix] 75 mg PO QDAY #30 tablet 06/15/18 Unknown Rx Ondansetron [Zofran ODT TAB] 4 mg PO Q8HR PRN #10 tab.rapdis 08/17/18 Unknown Rx Metoclopramide [Reglan] 10 mg PO ACHS #90 tablet 08/26/18 Unknown Rx Active Medications: Generic Name Dose Route Start Last Admin Trade Name Freq PRN Reason Stop Dose Admin Acetaminophen 650 mg 08/23/18 22:00 Tylenol PO Q4H PRN Pain MILD(1-3)/Fever >100.5/WILBURN Clonidine HCl 0.2 mg 08/25/18 21:00 08/25/18 21:53 Catapres-Tts Patch TD 0.2 mg Fr FABI Administration Heparin Sodium (Porcine) 5,000 unit 08/24/18 10:00 08/26/18 11:09 Heparin SUB-Q 5,000 unit Q12HR FABI Administration Hydromorphone HCl 0.5 mg 08/23/18 22:00 08/25/18 21:03 Dilaudid IV 0.5 mg Q3H PRN Administration Pain , Severe (7-10) Sodium Chloride 1,000 mls @ 42 mls/hr 08/23/18 22:00 08/25/18 18:03 Nacl 0.9% 1000 Ml IV 42 mls/hr DIRECT FABI Administration Sodium Chloride 100 mls @ 999 mls/hr 08/24/18 08:07 Nacl 0.9% IV MAGDI PRN Hypotension Sodium Chloride 1,000 mls @ 50 mls/hr 08/25/18 15:00 Nacl 0.9% 1000 Ml IV DIRECT FABI Insulin Human Lispro 0 unit 08/24/18 00:00 08/26/18 08:39 Humalog SUB-Q 3 unit Q6HR FABI Administration Protocol Metoclopramide HCl 5 mg 08/23/18 22:00 08/24/18 23:19 Reglan IV 5 mg Q6H PRN Administration Nausea And Vomiting Ondansetron HCl 4 mg 08/23/18 22:00 08/25/18 18:14 Zofran IV 4 mg Q3H PRN Administration Nausea And Vomiting Pantoprazole Sodium 40 mg 08/24/18 02:00 08/26/18 11:09 Protonix IV 40 mg BID FABI Administration Sodium Chloride 10 ml 08/23/18 22:00 08/26/18 11:09 Sodium Chloride Flush Syringe 10 Ml IV 10 ml BID FABI Administration Sodium Chloride 10 ml 08/23/18 22:00 Sodium Chloride Flush Syringe 10 Ml IV PRN PRN LINE FLUSH
[2018-08-26 12:28] VITALS: BP 103/66
== END 2018-08-26 15:30 | disposition home or self-care (01) | DRG 73 ==
LOC: ED 14:35 → 3A 17:20
PROVIDERS: ADMIT Internal Medicine; ATTEND Hospitalist
PROC: 0DB78ZX Excision of Stomach, Pylorus, Via Natural or Artificial Opening Endoscopic, Diagnostic (ICD-10-PCS; principal; 2018-08-25)
PROC: 5A1D70Z Performance of Urinary Filtration, Intermittent, Less than 6 Hours Per Day (ICD-10-PCS; 2018-08-25)
DX: E11.43 Type 2 diabetes mellitus with diabetic autonomic (poly)neuropathy (principal); N18.6 End stage renal disease; I12.0 Hypertensive chronic kidney disease with stage 5 chronic kidney disease or end stage renal disease; K31.84 Gastroparesis; E11.22 Type 2 diabetes mellitus with diabetic chronic kidney disease; I25.10 Atherosclerotic heart disease of native coronary artery without angina pectoris; K21.9 Gastro-esophageal reflux disease without esophagitis; E11.51 Type 2 diabetes mellitus with diabetic peripheral angiopathy without gangrene; E66.9 Obesity, unspecified; K29.70 Gastritis, unspecified, without bleeding; K44.9 Diaphragmatic hernia without obstruction or gangrene; J33.8 Other polyp of sinus; E55.9 Vitamin D deficiency, unspecified; K31.7 Polyp of stomach and duodenum; Z99.2 Dependence on renal dialysis; Z79.4 Long term (current) use of insulin; Z82.49 Family history of ischemic heart disease and other diseases of the circulatory system; Z79.82 Long term (current) use of aspirin; Z79.899 Other long term (current) drug therapy; Z90.49 Acquired absence of other specified parts of digestive tract; Z83.3 Family history of diabetes mellitus; Z68.33 Body mass index [BMI] 33.0-33.9, adult
CPT/HCPCS: 36415; 80048; 80053; 80074; 82962; 83036; 83690; 85025; 85027; 88305; 88342; 99285; G0378; C9113; J1170; J1200; J1644; J1815; J2060; J2405; J2704; J2765; J7030; J7040

== ENCOUNTER 2018-12-30 15:53 | Emergency (ER) | payer BC ==
[2018-12-30 16:41] LABS: Basophils % (Auto) 0.4 % (0.0-1.8); Eosinophils % (Auto) 0.1 % (0.0-4.3); Hematocrit 33.3 % (35.5-45.6); Hemoglobin 11.4 gm/dl (11.8-15.2); Lymphocytes # (Auto) 1.1 K/mm3 (1.2-5.4); Lymphocytes % (Auto) 14.6 % (13.4-35.0); Mean Corpuscular HGB Conc 34 % (32-34); Mean Corpuscular Volume 88 fl (84-94); Monocytes # (Auto) 0.4 K/mm3 (0.0-0.8); Monocytes % (Auto) 4.7 % (0.0-7.3); Platelet Count 260 K/mm3 (140-440); Red Blood Count 3.79 M/mm3 (3.65-5.03); Red Cell Distribution Width 16.3 % (13.2-15.2)
[2018-12-30] MEDS ORDERED: FAMOTIDINE 20 MG/2 ML INJ IV ONE (16:49)
[2018-12-30] MEDS ORDERED: ZIPRASIDONE MESYLATE 20 MG VIAL IM ONE (16:49)
[2018-12-30] MEDS ORDERED: ONDANSETRON 4 MG/2 ML INJ IV ONE (16:49)
[2018-12-30] MEDS ORDERED: DICYCLOMINE 20 MG/2 ML INJ IM ONE (16:49)
[2018-12-30 17:12] LABS: Albumin 4.3 g/dL (3.9-5); Calcium 9.3 mg/dL (8.4-10.2)
[2018-12-30] MEDS ORDERED: WATER FOR INJ Sterile (PF) 10 ML ONE (17:19)
--- NOTE | 2018-12-30 19:05 | Emergency Department Report ---
ED N/V/D HPI - General Chief complaint: Abdominal Pain Stated complaint: ABD PAIN Time Seen by Provider: 12/30/18 16:45 Source: patient Mode of arrival: Ambulatory Limitations: No Limitations - History of Present Illness Initial comments: Patient is a 58-year-old male who is here stating that he has stomach cramps in the epigastrium. Patient states he has vomited 4 times today. Patient has a history of gastroparesis. Patient states this occurs frequently and he is normally admitted. Patient does have a history of being end-stage r enal disease and his last dialysis was yesterday. Patient denies shortness of breath. Patient is asking for Dilaudid which she states is the only thing that helps with his gastroparesis. - Related Data Home Medications Medication Instructions Recorded Confirmed Last Taken Carvedilol [Coreg] 3.125 mg PO BID 06/07/18 11/10/18 11/09/18 Ergocalciferol [Vitamin D2] 1 cap PO 1XW 06/07/18 11/10/18 11/09/18 Gabapentin 100 mg PO TID 06/07/18 11/10/18 11/09/18 100 mg Insulin Aspart (Nf) [NovoLOG 5 units SC TIDAC 06/07/18 11/10/18 11/09/18 Flexpen] Previous Rx's Medication Instructions Recorded Last Taken Type Aspirin EC [Halfprin EC] 81 mg PO QDAY #30 tablet. 06/15/18 11/09/18 Rx Clopidogrel [Plavix] 75 mg PO QDAY #30 tablet 06/15/18 11/09/18 Rx Promethazine [Phenergan SUPPOS] 50 mg VA Q6H PRN #15 supp.rect 11/09/18 11/09/18 Rx Metoclopramide [Reglan TAB] 10 mg PO ACHS #90 tablet 11/12/18 Unknown Rx Ondansetron [Zofran ODT TAB] 4 mg PO Q8HR PRN #10 tab.rapdis 11/12/18 Unknown Rx Pantoprazole [Protonix] 40 mg PO QDAY #30 tablet 11/12/18 Unknown Rx Dicyclomine [Bentyl] 20 mg PO QID #10 tablet 12/30/18 Unknown Rx Ondansetron [Zofran Odt] 4 mg PO Q8HR #10 tab.rapdis 12/30/18 Unknown Rx Allergies Allergy/AdvReac Type Severity Reaction Status Date / Time No Known Allergies Allergy Verified 08/23/18 15:01 ED Review of Systems ROS: Stated complaint: ABD PAIN Other details as noted in HPI Comment: All other systems reviewed and negative ED Past Medical Hx - Past Medical History Hx Hypertension: Yes (reports no antihypertensive use since starting HD 2yrs ago) Hx Heart Attack/AMI: No Hx Diabetes: Yes Hx Liver Disease: No Hx Renal Disease: Yes (ESRD, HD M-W-F) Hx Seizures: No Hx HIV: No Additional medical history: gastroporesis, High cholesterol - Surgical History Hx Cholecystectomy: Yes Additional Surgical History: hernia repair. left foot, left ACL, right upper arm graft - Social History Smoking Status: Never Smoker Substance Use Type: None - Medications Home Medications: Home Medications Medication Instructions Recorded Confirmed Last Taken Type Carvedilol [Coreg] 3.125 mg PO BID 06/07/18 11/10/18 11/09/18 History Ergocalciferol [Vitamin D2] 1 cap PO 1XW 06/07/18 11/10/18 11/09/18 History Gabapentin 100 mg PO TID 06/07/18 11/10/18 11/09/18 History 100 mg Insulin Aspart (Nf) [NovoLOG 5 units SC TIDAC 06/07/18 11/10/18 11/09/18 History Flexpen] Aspirin EC [Halfprin EC] 81 mg PO QDAY #30 tablet. 06/15/18 11/10/18 11/09/18 Rx Clopidogrel [Plavix] 75 mg PO QDAY #30 tablet 06/15/18 11/10/18 11/09/18 Rx Promethazine [Phenergan SUPPOS] 50 mg VA Q6H PRN #15 supp.rect 11/09/18 11/10/18 11/09/18 Rx Metoclopramide [Reglan TAB] 10 mg PO ACHS #90 tablet 11/12/18 Unknown Rx Ondansetron [Zofran ODT TAB] 4 mg PO Q8HR PRN #10 tab.rapdis 11/12/18 Unknown Rx Pantoprazole [Protonix] 40 mg PO QDAY #30 tablet 11/12/18 Unknown Rx Dicyclomine [Bentyl] 20 mg PO QID #10 tablet 12/30/18 Unknown Rx Ondansetron [Zofran Odt] 4 mg PO Q8HR #10 tab.rapdis 12/30/18 Unknown Rx ED Physical Exam - General Limitations: No Limitations General appearance: alert, in no apparent distress - Head Head exam: Present: atraumatic, normocephalic - Eye Eye exam: Present: normal appearance - ENT ENT exam: Present: mucous membranes moist - Neck Neck exam: Present: normal inspection - Respiratory Respiratory exam: Present: normal lung sounds bilaterally. Absent: respiratory distress, wheezes, rales, rhonchi - Cardiovascular Cardiovascular Exam: Present: regular rate, normal rhythm. Absent: systolic mur mur, diastolic murmur, rubs, gallop - GI/Abdominal GI/Abdominal exam: Present: soft, tenderness (epigastric), normal bowel sounds. Absent: distended, guarding, rebound, rigid - Rectal Rectal exam: Present: deferred - Extremities Exam Extremities exam: Present: normal inspection - Back Exam Back exam: Present: normal inspection - Neurological Exam Neurological exam: Present: alert, oriented X3 - Psychiatric Psychiatric exam: Present: normal affect, normal mood - Skin Skin exam: Present: warm, dry, intact, normal color. Absent: rash ED Course Vital Signs 12/30/18 12/30/18 15:58 17:12 Temperature 98.4 F Pulse Rate 111 H 100 H Respiratory 18 Rate Blood Pressure 198/101 199/107 O2 Sat by Pulse 100 Oximetry ED Medical Decision Making - Lab Data Result diagrams: 12/30/18 16:19 12/30/18 16:19 - Medical Decision Making Patient was given antiemetics and emergency department. Patient's had no episodes of vomiting since his arrival. Patient is at the time of discharge is still stating that he feels that he should've had some Dilaudid for pain but I do not feel as though this is warranted at this time. Patient be discharged home. Critical care attestation.: If time is entered above; I have spent that time in minutes in the direct care of this critically ill patient, excluding procedure time. ED Disposition Clinical Impression: Gastroparesis Disposition: DC-01 TO HOME OR SELFCARE Is pt being admited?: No Does the pt Need Aspirin: No Condition: Stable Instructions: Acute Nausea and Vomiting (ED) Referrals: ABHIJEET KIM MD [Primary Care Provider] - 3-5 Days Time of Disposition: 19:07
[2018-12-30 19:36] VITALS: BP 177/93
== END 2018-12-30 19:35 | disposition home or self-care (01) ==
LOC: ED 15:53
DX: E11.43 Type 2 diabetes mellitus with diabetic autonomic (poly)neuropathy (principal); K31.84 Gastroparesis; E78.00 Pure hypercholesterolemia, unspecified; I12.0 Hypertensive chronic kidney disease with stage 5 chronic kidney disease or end stage renal disease; E11.22 Type 2 diabetes mellitus with diabetic chronic kidney disease; N18.6 End stage renal disease; Z99.2 Dependence on renal dialysis; Z98.890 Other specified postprocedural states; Z79.899 Other long term (current) drug therapy
CPT/HCPCS: 36415; 80053; 85025; 96372; 96374; 96375; 99283; J0500; J2405; J3486

== ENCOUNTER 2019-03-08 05:47 | Emergency (ER) | payer BC ==
[2019-03-08 06:27] LABS: Basophils % (Auto) 0.6 % (0.0-1.8); Hematocrit 45.4 % (35.5-45.6); Lymphocytes % (Auto) 12.7 % (13.4-35.0); Mean Corpuscular HGB Conc 33 % (32-34); Mean Corpuscular Volume 95 fl (84-94); Monocytes # (Auto) 0.2 K/mm3 (0.0-0.8); Monocytes % (Auto) 2.6 % (0.0-7.3); Platelet Count 344 K/mm3 (140-440); Red Blood Count 4.76 M/mm3 (3.65-5.03); Red Cell Distribution Width 18.3 % (13.2-15.2)
[2019-03-08] MEDS ORDERED: ONDANSETRON 4 MG/2 ML INJ IV ONE (06:49)
[2019-03-08] MEDS ORDERED: MORPHINE 4 MG/1 ML INJ IV ONE (06:51)
--- NOTE | 2019-03-08 06:53 | Emergency Department Report ---
HPI - General Chief Complaint: Abdominal Pain Time Seen by Provider: 03/08/19 06:39 - HPI HPI: 59-year-old -Cong[place] male presents to the emergency department with complaint of nausea and vomiting and some left upper quadrant and epigastric abdominal pain since about 10 AM yesterday after completing his hemodialysis. The patient has a past medical history of diabetes, gastroparesis, high cholesterol, end-stage renal disease on hemodialysis on Tuesday/Tuesday/Tuesday. He also has a history of hypertension and does present with elevated blood pressure but says that he has not on any antihypertensives as his blood pressure has been controlled with hemodialysis. His spear fisher is Dr. Hays and his primary care physician is Dr. Blanco. He has not taken anything for his symptoms prior to presentation today. ED Past Medical Hx - Past Medical History Previous Medical History?: Yes Hx Hypertension: Yes (reports no antihypertensive use since starting HD 2yrs ago) Hx Heart Attack/AMI: No Hx Diabetes: Yes Hx Liver Disease: No Hx Renal Disease: Yes (ESRD, HD M-W-F) Hx Seizures: No Hx HIV: No Additional medical history: gastroporesis, High cholesterol - Surgical History Past Surgical History?: Yes Hx Cholecystectomy: Yes Additional Surgical History: hernia repair. left foot, left ACL, right upper arm graft - Social History Smoking Status: Never Smoker Substance Use Type: None - Medications Home Medications: Home Medications Medication Instructions Recorded Confirmed Last Taken Type Ergocalciferol [Vitamin D2] 1 cap PO 1XW 06/07/18 11/10/18 11/09/18 History Gabapentin 100 mg PO TID 06/07/18 11/10/18 11/09/18 History 100 mg Insulin Aspart (Nf) [NovoLOG 5 units SC TIDAC 06/07/18 11/10/18 11/09/18 History Flexpen] carvediloL [Coreg] 3.125 mg PO BID 06/07/18 11/10/18 11/09/18 History Aspirin EC [Halfprin EC] 81 mg PO QDAY #30 tablet. 06/15/18 11/10/18 11/09/18 Rx Clopidogrel [Plavix] 75 mg PO QDAY #30 tablet 06/15/18 11/10/18 11/09/18 Rx Promethazine [Phenergan SUPPOS] 50 mg UT Q6H PRN #15 supp.rect 11/09/18 11/10/18 11/09/18 Rx Metoclopramide [Reglan TAB] 10 mg PO ACHS #90 tablet 11/12/18 Unknown Rx Ondansetron [Zofran ODT TAB] 4 mg PO Q8HR PRN #10 tab.rapdis 11/12/18 Unknown Rx Pantoprazole [Protonix] 40 mg PO QDAY #30 tablet 11/12/18 Unknown Rx Dicyclomine [Bentyl] 20 mg PO QID #10 tablet 12/30/18 Unknown Rx Ondansetron [Zofran Odt] 4 mg PO Q8HR #10 tab.rapdis 12/30/18 Unknown Rx Ondansetron [Zofran Odt] 4 mg PO Q8HR PRN #15 tab.rapdis 03/08/19 Unknown Rx ED Review of Systems ROS: Stated complaint: ABDOMINAL PAIN,NAUSEA Other details as noted in HPI Comment: All other systems reviewed and negative Constitutional: denies: chills, fever Eyes: denies: eye pain, vision change ENT: denies: ear pain, throat pain Respiratory: denies: cough, shortness of breath Cardiovascular: denies: chest pain, palpitations Gastrointestinal: abdominal pain, nausea, vomiting Genitourinary: denies: dysuria, discharge Musculoskeletal: denies: back pain, arthralgia Skin: denies: rash, lesions Neurological: denies: headache, weakness Physical Exam - Physical Exam Vital Signs: Vital Signs 03/08/19 05:51 Temperature 99.3 F Pulse Rate 116 H Respiratory 18 Rate Blood Pressure 188/103 O2 Sat by Pulse 98 Oximetry Physical Exam: GENERAL: The patient is well-developed well-nourished. HEENT: Normocephalic. Atraumatic. Patient has moist mucous membranes. EYES: Extraocular motions are intact. NECK: Supple. Trachea is midline. CHEST/LUNGS: Clear to auscultation. There is no respiratory distress noted. HEART/CARDIOVASCULAR: Regular. There is no tachycardia. There is no murmur. ABDOMEN: Abdomen is soft. Mild epigastric tenderness to palpation. No g uarding. Patient has normal bowel sounds. There is no abdominal distention. SKIN:Skin is warm and dry. . NEURO: The patient is awake, alert, and oriented. The patient is cooperative. The patient has no focal neurologic deficits. Normal speech. MUSCULOSKELETAL: There is no tenderness or deformity. There is no evidence of acute injury. ED Course Vital Signs 03/08/19 05:51 Temperature 99.3 F Pulse Rate 116 H Respiratory 18 Rate Blood Pressure 188/103 O2 Sat by Pulse 98 Oximetry ED Medical Decision Making - Lab Data Result diagrams: 03/08/19 06:10 03/08/19 06:10 - Radiology Data Radiology results: image reviewed interpreted by me: Abdominal x-ray shows nonspecific nonobstructive bowel gas. - Medical Decision Making This patient presents with a few days of some nausea, vomiting and upper abdominal pain. His abdomen is soft, nondistended and nontoxic in appearance. Patient presents with elevated blood pressure but came down to a more reasonable level with some antihypertensive medication given. Patient was reevaluated multiple times over multiple hours and there has been no further nausea or vomiting. Abdominal x-ray shows nonspecific nonobstructive bowel gas. Labs are unremarkable except for the renal insufficiency consistent with his end-stage renal disease. The patient will be discharged home with antiemetic prescription. He is to follow-up with his primary care physician and continue with his normal dialysis regimen. He has been instructed to return to the emergency Department with any worsening of his symptoms or any acute distress. - Differential Diagnosis gastroparesis, gastroenteritis, colitis, diverticulitis Critical Care Time: No Critical care attestation.: If time is entered above; I have spent that time in minutes in the direct care of this critically ill patient, excluding procedure time. ED Disposition Clinical Impression: ESRD (end stage renal disease), Gastroparesis HTN (hypertension) Qualifiers: Hypertension type: essential hypertension Qualified Code(s): I10 - Essential (primary) hypertension Disposition: -01 TO HOME OR SELFCARE Is pt being admited?: No Condition: Stable Instructions: Acute Nausea and Vomiting (ED), Abdominal Pain (ED), Hypertension (ED), End-Stage Kidney Disease (ED) Additional Instructions: Please continue with her normal dialysis regimen. Please follow-up with your primary care physician in the next few days. Return to the emergency Department with any worsening of your symptoms or any acute distress. Prescriptions: Ondansetron [Zofran Odt] 4 mg PO Q8HR PRN #15 tab.rapdis PRN Reason: Nausea Referrals: HERVE HAYS MD [Staff Physician] - 2-3 Days PCP, Your [Other] - 2-3 Days Time of Disposition: 08:49
[2019-03-08] MEDS ORDERED: hydrALAZINE 20 MG/1 ML INJ IV ONE (07:04)
[2019-03-08 07:08] LABS: Albumin 4.5 g/dL (3.9-5); Calcium 9.9 mg/dL (8.4-10.2)
--- NOTE | 2019-03-08 07:33 | XRay Report ---
ABDOMEN 2 VIEW(S) INDICATION / CLINICAL INFORMATION: Abdominal pain. COMPARISON: 06/04/2016. FINDINGS: TUBES / LINES: None. BOWEL GAS PATTERN: Moderate amount of stool in the colon. No evidence of bowel obstruction or mass ef fect. FREE AIR / EXTRALUMINAL GAS: None seen. ADDITIONAL FINDINGS: Prior cholecystectomy. IMPRESSION: No acute abnormality or significant change. Signer Name: Byron Gunter MD Signed: 03/08/2019 7:28 AM Workstation Name: [email or web address]
[2019-03-08] MEDS ORDERED: METOCLOPRAMIDE 10 MG/2 ML INJ IV ONE (08:15)
[2019-03-08 08:48] VITALS: BP 145/83
== END 2019-03-08 09:14 | disposition home or self-care (01) ==
LOC: ED 05:47
DX: I12.0 Hypertensive chronic kidney disease with stage 5 chronic kidney disease or end stage renal disease (principal); E11.22 Type 2 diabetes mellitus with diabetic chronic kidney disease; N18.6 End stage renal disease; E11.43 Type 2 diabetes mellitus with diabetic autonomic (poly)neuropathy; K31.84 Gastroparesis; Z99.2 Dependence on renal dialysis; Z90.49 Acquired absence of other specified parts of digestive tract; Z79.899 Other long term (current) drug therapy
CPT/HCPCS: 36415; 74019; 80053; 85025; 96374; 96375; 99284; J0360; J2270; J2405; J2765

== ENCOUNTER 2019-03-09 18:34 | Emergency (ER) | payer BC ==
[2019-03-09] MEDS ORDERED: fentaNYL 100 MCG/2 ML INJ IV ONE (20:35)
[2019-03-09] MEDS ORDERED: METOCLOPRAMIDE 10 MG/2 ML INJ IV ONE (20:35)
[2019-03-09] MEDS ORDERED: FAMOTIDINE 20 MG/2 ML INJ IV ONE (20:35)
--- NOTE | 2019-03-09 20:36 | Emergency Department Report ---
ED General Adult HPI - General Chief complaint: Abdominal Pain Stated complaint: NAUSEA/STOMACH PAIN Time Seen by Provider: 03/09/19 20:22 Source: patient, RN notes reviewed, old records reviewed Mode of arrival: Ambulatory Limitations: No Limitations - History of Present Illness Initial comments: Nephrology: Dr. Hays Gastroenterology: Dr. Knight This is a 59-year-old gentleman. I have evaluated this patient in the past. His past medical history includes diabetes, end-stage renal disease on hemodialysis, Tuesday, Tuesday, Tuesday, reports that he was dialyzed today, and reports they took off 3 L. He also has a history of gastroparesis. The patient was admitted to this hospital in 2019 for abdominal pain, nausea and vomiting, seen by gastroenterology, had EGD performed, showed no gastric outlet obstruction, demonstrated gastritis, and gastric antral polyps. He is suspected of having a diagnosis of gastroparesis. He presents to the ER with complaint of diffuse sharp crampy abdominal pain, throbbing, all over, associated with 50-60 episodes of nonbloody, nonbilious emesis. Symptoms started after his hemodialysis. He was reportedly seen in this department yesterday for similar symptoms. He reports that his symptoms were improved yesterday upon discharge. There is no complaint of headache, neck pain, new or different shortness of breath and he denies urinary symptoms. He has chronic dark stool secondary to medications, and he denies urinary symptoms. -: Gradual Location: abdomen Quality: other Consistency: other Improves with: other Worsens with: other - Related Data Home Medications Medication Instructions Recorded Confirmed Last Taken Ergocalciferol [Vitamin D2] 1 cap PO 1XW 06/07/18 11/10/18 11/09/18 Gabapentin 100 mg PO TID 06/07/18 11/10/18 11/09/18 100 mg Insulin Aspart (Nf) [NovoLOG 5 units SC TIDAC 06/07/18 11/10/18 11/09/18 Flexpen] carvediloL [Coreg] 3.125 mg PO BID 06/07/18 11/10/18 11/09/18 Previous Rx's Medication Instructions Recorded Last Taken Type Aspirin EC [Halfprin EC] 81 mg PO QDAY #30 tablet. 06/15/18 11/09/18 Rx Clopidogrel [Plavix] 75 mg PO QDAY #30 tablet 06/15/18 11/09/18 Rx Metoclopramide [Reglan TAB] 10 mg PO ACHS #90 tablet 11/12/18 Unknown Rx Ondansetron [Zofran ODT TAB] 4 mg PO Q8HR PRN #10 tab.rapdis 11/12/18 Unknown Rx Pantoprazole [Protonix] 40 mg PO QDAY #30 tablet 11/12/18 Unknown Rx Dicyclomine [Bentyl] 20 mg PO QID #10 tablet 12/30/18 Unknown Rx Ondansetron [Zofran Odt] 4 mg PO Q8HR #10 tab.rapdis 12/30/18 Unknown Rx Ondansetron [Zofran Odt] 4 mg PO Q8HR PRN #15 tab.rapdis 03/08/19 Unknown Rx Acetaminophen [Non-Aspirin Extra 500 mg PO Q6HR PRN #30 tablet 03/10/19 Unknown Rx Strength] Famotidine [Pepcid] 20 mg PO BID #30 tablet 03/10/19 Unknown Rx Sonal Root [Sonal] 250 mg PO QID PRN #30 capsule 03/10/19 Unknown Rx Metoclopramide [Reglan] 10 mg PO QID PRN #30 tablet 03/10/19 Unknown Rx Promethazine [Phenergan SUPPOS] 50 mg OK Q6H PRN #15 supp.rect 03/10/19 Unknown Rx Allergies Allergy/AdvReac Type Severity Reaction Status Date / Time No Known Allergies Allergy Verified 08/23/18 15:01 ED Review of Systems ROS: Stated complaint: NAUSEA/STOMACH PAIN Other details as noted in HPI Constitutional: malaise. denies: fever Eyes: denies: eye discharge ENT: denies: congestion Respiratory: denies: wheezing Cardiovascular: denies: syncope Gastrointestinal: abdominal pain, nausea, vomiting Genitourinary: denies: dysuria Skin: denies: lesions Neurological: weakness Hematological/Lymphatic: denies: easy bleeding ED Past Medical Hx - Past Medical History Previous Medical History?: Yes Hx Hypertension: Yes (reports no antihypertensive use since starting HD 2yrs ago) Hx Heart Attack/AMI: No Hx Diabetes: Yes Hx Liver Disease: No Hx Renal Disease: Yes (ESRD, HD -W-) Hx Seizures: No Hx HIV: No Additional medical history: gastroporesis, High cholesterol - Surgical History Past Surgical History?: Yes Hx Cholecystectomy: Yes Additional Surgical History: hernia repair. left foot, left ACL, right upper arm graft - Social History Smoking Status: Never Smoker Substance Use Type: None - Medications Home Medications: Home Medications Medication Instructions Recorded Confirmed Last Taken Type Ergocalciferol [Vitamin D2] 1 cap PO 1XW 06/07/18 11/10/18 11/09/18 History Gabapentin 100 mg PO TID 06/07/18 11/10/18 11/09/18 History 100 mg Insulin Aspart (Nf) [NovoLOG 5 units SC TIDAC 06/07/18 11/10/18 11/09/18 History Flexpen] carvediloL [Coreg] 3.125 mg PO BID 06/07/18 11/10/18 11/09/18 History Aspirin EC [Halfprin EC] 81 mg PO QDAY #30 tablet. 06/15/18 11/10/18 11/09/18 Rx Clopidogrel [Plavix] 75 mg PO QDAY #30 tablet 06/15/18 11/10/18 11/09/18 Rx Metoclopramide [Reglan TAB] 10 mg PO ACHS #90 tablet 11/12/18 Unknown Rx Ondansetron [Zofran ODT TAB] 4 mg PO Q8HR PRN #10 tab.rapdis 11/12/18 Unknown Rx Pantoprazole [Protonix] 40 mg PO QDAY #30 tablet 11/12/18 Unknown Rx Dicyclomine [Bentyl] 20 mg PO QID #10 tablet 12/30/18 Unknown Rx Ondansetron [Zofran Odt] 4 mg PO Q8HR #10 tab.rapdis 12/30/18 Unknown Rx Ondansetron [Zofran Odt] 4 mg PO Q8HR PRN #15 tab.rapdis 03/08/19 Unknown Rx Acetaminophen [Non-Aspirin Extra 500 mg PO Q6HR PRN #30 tablet 03/10/19 Unknown Rx Strength] Famotidine [Pepcid] 20 mg PO BID #30 tablet 03/10/19 Unknown Rx Sonal Root [Sonal] 250 mg PO QID PRN #30 capsule 03/10/19 Unknown Rx Metoclopramide [Reglan] 10 mg PO QID PRN #30 tablet 03/10/19 Unknown Rx Promethazine [Phenergan SUPPOS] 50 mg OK Q6H PRN #15 supp.rect 03/10/19 Unknown Rx ED Physical Exam - General Limitations: No Limitations General appearance: alert, obese - Head Head exam: Present: atraumatic, normocephalic - Eye Eye exam: Present: normal appearance, EOMI. Absent: nystagmus - ENT ENT exam: Present: normal exam, normal orophraynx, mucous membranes moist, normal external ear exam - Neck Neck exam: Present: normal inspection, full ROM. Absent: tenderness, meningism us - Respiratory Respiratory exam: Present: normal lung sounds bilaterally. Absent: respiratory distress - Cardiovascular Cardiovascular Exam: Present: normal rhythm, tachycardia, normal heart sounds. Absent: systolic murmur, diastolic murmur, rubs, gallop - GI/Abdominal GI/Abdominal exam: Present: soft, tenderness (there is epigastric abdominal tenderness. There is no rebound. There are no peritoneal signs.). Absent: distended, guarding, rebound, rigid, pulsatile mass - Rectal Rectal exam: Present: deferred - Extremities Exam Extremities exam: Present: normal inspection (is up her extremity fistula, without redness, pus or streaking. There is no palpable cord noted. Bilateral lower extremities appear to be symmetric in size.), full ROM, pedal edema, other (2+ pulses noted in the bilateral upper and lower extremities. The pelvis is stable. There is no long bony tenderness. The muscular compartments are soft. There is no redness, pus, streaking or erythema.). Absent: calf tenderness - Back Exam Back exam: Present: normal inspection, full ROM. Absent: tenderness, CVA tenderness (R), CVA tenderness (L), paraspinal tenderness, vertebral tenderness - Neurological Exam Neurological exam: Present: alert, other (there is no facial droop. The tongue is midline. Extraocular movements are intact bilaterally. Speaking in full sentences. Hearing is grossly intact. 5 out of 5 strength bilateral upper and lower extremities. Sensation is intact to light touch bilateral upper and lower extremities.). Absent: motor sensory deficit - Psychiatric Psychiatric exam: Present: anxious - Skin Skin exam: Present: warm, dry, intact, normal color. Absent: rash ED Course Vital Signs 03/09/19 03/09/19 03/09/19 19:48 20:46 21:01 Temperature 98.4 F Pulse Rate 110 H 77 101 H Respiratory 18 13 12 Rate Blood Pressure 206/119 O2 Sat by Pulse 97 99 99 Oximetry 03/09/19 03/09/19 03/09/19 21:13 21:15 21:30 Temperature Pulse Rate 96 H 94 H 96 H Respiratory 16 22 Rate Blood Pressure 187/95 184/97 185/98 O2 Sat by Pulse 92 85 Oximetry 03/09/19 03/09/19 03/09/19 21:45 22:00 22:15 Temperature Pulse Rate 97 H 98 H 97 H Respiratory 18 20 16 Rate Blood Pressure 194/101 171/91 182/97 O2 Sat by Pulse 90 90 92 Oximetry 03/09/19 03/09/19 03/09/19 22:30 22:45 23:00 Temperature Pulse Rate 97 H 98 H 98 H Respiratory 14 11 L 14 Rate Blood Pressure 191/102 186/99 185/100 O2 Sat by Pulse 92 93 94 Oximetry 03/09/19 03/09/19 03/09/19 23:15 23:30 23:45 Temperature Pulse Rate 100 H 99 H 101 H Respiratory 12 22 23 Rate Blood Pressure 183/100 175/95 166/85 O2 Sat by Pulse 95 93 93 Oximetry 03/10/19 03/10/19 03/10/19 00:01 00:03 00:11 Temperature Pulse Rate 98 H 98 H Respiratory 22 19 16 Rate Blood Pressure 154/85 154/85 O2 Sat by Pulse 93 96 Oximetry 03/10/19 03/10/19 03/10/19 00:15 00:30 01:07 Temperature Pulse Rate 99 H 100 H 81 Respiratory 25 H 19 Rate Blood Pressure 159/87 161/84 161/84 O2 Sat by Pulse 93 93 Oximetry 03/10/19 01:15 Temperature Pulse Rate 98 H Respiratory 18 Rate Blood Pressure 178/97 O2 Sat by Pulse 95 Oximetry - Reevaluation(s) Reevaluation #1: 03/09/19 21:08 Differential diagnosis, including but not limited to: Colitis, obstruction, volvulus, gastroparesis, abdominal wall pain, hyperkalemia, azotemia, uremia, hypertension secondary to abdominal pain, hypertension secondary to renal insufficiency Assessment and plan: 59-year-old gentleman with probable recurrence of gastroparesis flare exacerbation. He is afebrile with reassuring vital signs with the exception of tachycardia and hypertension. We will obtain laboratory studies, EKG, noncontrast CT scan of the abdomen pelvis, provide nausea medicine, pain medicine and reassess. Reevaluation #2: 03/10/19 01:43 CT scan abdomen and pelvis negative for acute disease. No active vomiting. Hypertension improved. This is likely an exacerbation of chronic hypertension and underlying gastroparesis. ED Medical Decision Making - Lab Data Result diagrams: 03/09/19 20:48 03/09/19 20:48 Vital Signs 03/09/19 19:48 Temperature 98.4 F Pulse Rate 110 H Respiratory 18 Rate Blood Pressure 206/119 O2 Sat by Pulse 97 Oximetry Lab Results 03/09/19 Range/Units 20:48 WBC 8.0 (4.5-11.0) K/mm3 RBC 4.78 (3.65-5.03) M/mm3 Hgb 15.1 (11.8-15.2) gm/dl Hct 46.2 H (35.5-45.6) % MCV 97 H (84-94) fl MCH 32 (28-32) pg MCHC 33 (32-34) % RDW 18.5 H (13.2-15.2) % Plt Count 302 (140-440) K/mm3 - EKG Data -: EKG Interpreted by [facility] EKG shows normal: sinus rhythm Rate: tachycardia - EKG Data 03/09/19 21:09 The EKG shows a sinus tachycardia, with a left axis deviation, right bundle- branch block, prolonged QTC, slight motion artifact, unchanged from prior EKG from 11/09/2018. This is not a STEMI. Rate 102 bpm - Radiology Data Radiology results: report reviewed, image reviewed Critical care attestation.: If time is entered above; I have spent that time in minutes in the direct care of this critically ill patient, excluding procedure time. ED Disposition Clinical Impression: ESRD (end stage renal disease), Gastroparesis, HTN (hypertension) Disposition: - TO HOME OR SELFCARE Is pt being admited?: No Does the pt Need Aspirin: No Condition: Stable Additional Instructions: Symptoms likely coming from diabetic gastroparesis. Symptoms will likely wax and wane. It is very difficult to cure diabetic gastroparesis. Avoid consumption of Motrin, ibuprofen, Naprosyn, Aleve, ibuprofen. Avoid consumption of sugary drinks, sweets, and foods. Take the pain medication, nausea medications as needed and/or directed. Patient may take sonal tablets as d irected/needed for nausea, vomiting, Reglan medication as needed for nausea and vomiting, and Phenergan suppositories needed for intractable nausea and vomiting. Please continue current outpatient blood pressure medication. Patient was found to be hypertensive with high blood pressure in the emergency room. The patient should follow-up with his primary care doctor or kidney doctor for his hyper tension within the next 4 weeks. Long-term complications of hypertension and elevated blood pressure includes stroke, heart attack, disability, paralysis, loss of quality of life. Return to the emergency room right away with projectile vomiting, change in mental status, confusion, inability to tolerate liquid feeds, new, worsened or different symptoms not present on the initial emergency room evaluation. Referrals: RICHAR KNIGHT MD [Staff Physician] - 3-5 Days
[2019-03-09 20:59] LABS: Hematocrit 46.2 % (35.5-45.6); Hemoglobin 15.1 gm/dl (11.8-15.2); Mean Corpuscular HGB Conc 33 % (32-34); Mean Corpuscular Volume 97 fl (84-94); Platelet Count 302 K/mm3 (140-440); Red Blood Count 4.78 M/mm3 (3.65-5.03); Red Cell Distribution Width 18.5 % (13.2-15.2)
[2019-03-09 21:15] LABS: Albumin 4.1 g/dL (3.9-5); Calcium 9.8 mg/dL (8.4-10.2)
[2019-03-09] MEDS ORDERED: HYDROmorphone 1 MG/1 ML INJ IV ONE (21:40)
[2019-03-10] MEDS ORDERED: HALOPERIDOL LACTATE 5 MG/1 ML INJ IM STA (01:15)
--- NOTE | 2019-03-10 01:19 | Cat Scan Report ---
CT ABDOMEN AND PELVIS WITHOUT IV CONTRAST INDICATION: MAIN: GENERALIZED abd pain, NAUSEA. COMPARISON: 11/10/2018. TECHNIQUE: All CT scans at this facility use dose modulation, automated exposure control, iterative reconstructi on or weight based dosing, when appropriate, to reduce radiation dose to as low as reasonably achieva ble. FINDINGS: Lung Bases: No significant abnormality. Skeletal System: No acute abnormality. ABDOMEN: Liver: No significant abnormality. Gallbladder: No significant abnormality. Bile Ducts: No significant abnormality. Pancreas: No significant abnormality. Spleen: No significant abnormality. Adrenals: No significant abnormality. Right Kidney: No significant abnormality. Left Kidney: No significant abnormality. Upper GI tract: No significant abnormality. Lymph Nodes: No significant adenopathy. Aorta: No significant abnormality. Additional Findings: Small periumbilical ventral hernias, some of which contain small bowel, are unch anged. PELVIS: Colon: No acute abnormality. Diverticulosis is noted. Urinary Bladder and Distal Ureters: No significant abnormality. Appendix: No significant abnormality. Lymph Nodes: No significant adenopathy. Additional Findings: Prostate is mildly enlarged. IMPRESSION: 1. Within the limitations of non contrast technique, no acute process in the abdomen or pelvis. 2. Incidental findings, as above. Signer Name: Baltazar Torre MD Signed: 03/10/2019 1:14 AM Workstation Name: [id number]
[2019-03-10 02:00] VITALS: BP 170/96
== END 2019-03-10 02:00 | disposition home or self-care (01) ==
LOC: ED 18:34
DX: I12.0 Hypertensive chronic kidney disease with stage 5 chronic kidney disease or end stage renal disease (principal); N18.6 End stage renal disease; E11.22 Type 2 diabetes mellitus with diabetic chronic kidney disease; E11.43 Type 2 diabetes mellitus with diabetic autonomic (poly)neuropathy; K31.84 Gastroparesis; E78.00 Pure hypercholesterolemia, unspecified; Z90.49 Acquired absence of other specified parts of digestive tract; Z98.890 Other specified postprocedural states; Z79.899 Other long term (current) drug therapy
CPT/HCPCS: 36415; 74176; 80053; 82550; 83690; 83735; 85027; 93005; 93010; 96372; 96374; 96375; 96376; 99284; J1170; J1630; J2765; J3010

== ENCOUNTER 2019-04-23 13:05 | Emergency (ER) | payer BC ==
--- NOTE | 2019-04-23 13:59 | Event Note ---
ED Screening Note ED Screening Note: n/v that began today after dialysis no diarrhea generalized abd pain PMHx ESRD-dialysis, HTN no allergies to meds This initial assessment/diagnostic orders/clinical plan/treatment(s) is/are subject to change based on patients health status, clinical progression and re- assessment by fellow clinical providers in the ED. Further treatment and workup at subsequent clinical providers discretion. Patient/guardian urged not to elope from the ED as their condition may be serious if not clinically assessed and managed. Initial orders include: labs
[2019-04-23 14:24] LABS: Basophils % (Auto) 0.4 % (0.0-1.8); Eosinophils # (Auto) 0.1 K/mm3 (0.0-0.4); Eosinophils % (Auto) 0.9 % (0.0-4.3); Hematocrit 41.3 % (35.5-45.6); Hemoglobin 13.8 gm/dl (11.8-15.2); Lymphocytes # (Auto) 1.9 K/mm3 (1.2-5.4); Lymphocytes % (Auto) 33.8 % (13.4-35.0); Mean Corpuscular HGB Conc 33 % (32-34); Mean Corpuscular Volume 89 fl (84-94); Monocytes # (Auto) 0.6 K/mm3 (0.0-0.8); Monocytes % (Auto) 11.3 % (0.0-7.3); Platelet Count 244 K/mm3 (140-440); Red Blood Count 4.64 M/mm3 (3.65-5.03); Red Cell Distribution Width 16.4 % (13.2-15.2)
[2019-04-23 14:44] LABS: Albumin 4.2 g/dL (3.9-5); Calcium 9.8 mg/dL (8.4-10.2)
[2019-04-23 17:48] VITALS: BP 205/112
== END 2019-04-23 19:57 | disposition left against medical advice (07) ==
LOC: ED 13:05
DX: R10.9 Unspecified abdominal pain (principal); Z53.21 Procedure and treatment not carried out due to patient leaving prior to being seen by health care provider
CPT/HCPCS: 36415; 80053; 83690; 85025